=== PATIENT | female | born 1950 | race Caucasian/White ===

== ENCOUNTER 2016-09-17 11:43 | Emergency (ER) | payer OTHER ==
--- NOTE | 2016-09-17 13:28 | ED ---
Female Urogenital HPI - General Chief complaint: Urogenital Stated complaint: UTI possibly Time Seen by Provider: 09/17/16 13:14 Source: patient, RN notes reviewed Mode of arrival: ambulatory Limitations: no limitations - History of Present Illness Initial comments: This is a 66-year-old female presenting to the emergency department with 2 days of increased urinary frequency and dysuria. Patient reports that she has no abdominal pain, back pain nausea or vomiting. She reports that concerned she has a urinary tract infection. She denies any vaginal discharge. 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 She states that she thinks that it may have dropped again. She does not have insurance to see a transmission builder at this time. Patient reports that it is painful on the ending of her urination. She reports that she did take some [id number] urinary relief pills and it did have some help. - Related Data Previous Rx's Medication Instructions Recorded Nitrofurantoin Monohyd/M-Cryst 100 mg PO Q12HR #14 cap 09/17/16 [Macrobid] Phenazopyridine [Pyridium] 100 mg PO TID #9 tablet 09/17/16 Allergies Allergy/AdvReac Type Severity Reaction Status Date / Time codeine Allergy Unknown Verified 09/17/16 12:04 Review of Systems ROS Statement: Those systems with pertinent positive or pertinent negative responses have been documented in the HPI. ROS Other: All systems not noted in ROS Statement are negative. Past Medical History Additional Past Medical History / Comment(s): kidney stones, ovarian cysts History of Any Multi-Drug Resistant Organisms: None Reported Past Surgical History: Hysterectomy, Orthopedic Surgery Additional Past Surgical History / Comment(s): bladder suspension Past Psychological History: No Psychological Hx Reported Smoking Status: Former smoker Past Alcohol Use History: None Reported Past Drug Use History: None Reported General Exam - General Exam Comments Initial Comments: This is a pleasant 66-year-old female. No acute distress. Limitations: no limitations General appearance: alert, in no apparent distress Head exam: Present: atraumatic, normocephalic, normal inspection Eye exam: Present: normal appearance, PERRL, EOMI. Absent: scleral icterus, conjunctival injection, periorbital swelling ENT exam: Present: normal exam, mucous membranes moist Neck exam: Present: normal inspection. Absent: tenderness, meningismus, lymphadenopathy Respiratory exam: Present: normal lung sounds bilaterally. Absent: respiratory distress, wheezes, rales, rhonchi, stridor Cardiovascular Exam: Present: regular rate GI/Abdominal exam: Present: soft, normal bowel sounds. Absent: distended, tenderness, guarding, rebound, rigid Extremities exam: Present: normal inspection, full ROM, normal capillary refill. Absent: tenderness, pedal edema, joint swelling, calf tenderness Back exam: Present: normal inspection Neurological exam: Present: alert, oriented X3, CN II-XII intact Psychiatric exam: Present: normal affect, normal mood Skin exam: Present: warm, dry, intact, normal color. Absent: rash Course Vital Signs 09/17/16 09/17/16 12:01 13:27 Temperature 98.1 F 97.6 F Pulse Rate 68 69 Respiratory 20 16 Rate Blood Pressure 132/66 139/82 O2 Sat by Pulse 99 Oximetry Medical Decision Making - Medical Decision Making This is a 66-year-old female presenting to the emergency department with 2 days of increased urinary frequency and dysuria. Patient reports that she has no abdominal pain, back pain nausea or vomiting. She reports that concerned she has a urinary tract infection. She denies any vaginal discharge. 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 Urinalysis and urine culture obtained. Patient's urinalysis did show no significant signs of urinary tract infection. It does seem to be very diluted she has been drinking a lot of water. Uvula patient still complains of the urinary frequency and symptoms I will treat her with Macrobid and a short course of Pyridium. Discussed close follow-up with a primary care provider. Discussed returning here if there is any worsening signs or symptoms occur. Patient agrees to treatment plan will comply. Return parameters were discussed. - Lab Data Lab Results 09/17/16 Range/Units 13:20 Urine Color Colorless Urine Appearance Clear (Clear) Urine pH 6.0 (5.0-8.0) Urine Protein Negative (Negative) Urine Glucose (UA) Negative (Negative) Urine Ketones Negative (Negative) Urine Blood Negative (Negative) Urine Nitrite Negative (Negative) Urine Bilirubin Negative (Negative) Urine Urobilinogen <2.0 (<2.0) mg/dL Ur Leukocyte Esterase Negative (Negative) Disposition Clinical Impression: Dysuria Disposition: HOME SELF-CARE Condition: Good Instructions: Urinary Tract Infection in Women (ED) Additional Instructions: Patient is to increase her fluids. Take antibiotics as directed. Return to the emergency department if any alarming signs or symptoms occur. Prescriptions: Nitrofurantoin Monohyd/M-Cryst [Macrobid] 100 mg PO Q12HR #14 cap Phenazopyridine [Pyridium] 100 mg PO TID #9 tablet Referrals: None,Stated [Primary Care Provider] - 1-2 days Sharri Escobedo MD [STAFF PHYSICIAN] - 1-2 days Time of Disposition: 13:39
[2016-09-17 13:30] VITALS: TEMP 97.6
[2016-09-17 13:35] LABS: Appearance,Urine Clear (Clear); Bilirubin,Urine Negative (Negative); Glucose,Urine (UA) Negative (Negative); Ketones,Urine Negative (Negative); Leukocyte Esterase,Urine Negative (Negative); Nitrite,Urine Negative (Negative); Protein,Urine Negative (Negative); UA Billing (MACRO vs. MICRO) CHEM; Urobilinogen,Urine <2.0 mg/dL (<2.0)
[2016-09-17] MEDS ORDERED: NITROFURANTOIN MONOHYD/M-CRYST 100 MG CAP PO STA (13:41)
--- NOTE | 2016-09-17 13:48 | ED ---
Medical Decision Making - Medical Decision Making Patient is concerned that when she takes antibiotics she may develop these infection. Patient is requesting to be written for fluconazole for after her antibiotic. - Lab Data Lab Results 09/17/16 Range/Units 13:20 Urine Color Colorless Urine Appearance Clear (Clear) Urine pH 6.0 (5.0-8.0) Urine Protein Negative (Negative) Urine Glucose (UA) Negative (Negative) Urine Ketones Negative (Negative) Urine Blood Negative (Negative) Urine Nitrite Negative (Negative) Urine Bilirubin Negative (Negative) Urine Urobilinogen <2.0 (<2.0) mg/dL Ur Leukocyte Esterase Negative (Negative) Disposition Clinical Impression: Dysuria Disposition: HOME SELF-CARE Condition: Good Instructions: Urinary Tract Infection in Women (ED) Additional Instructions: Patient is to increase her fluids. Take antibiotics as directed. Return to the emergency department if any alarming signs or symptoms occur. Prescriptions: Fluconazole [Diflucan] 150 mg PO ONCE #2 tab Nitrofurantoin Monohyd/M-Cryst [Macrobid] 100 mg PO Q12HR #14 cap Phenazopyridine [Pyridium] 100 mg PO TID #9 tablet Referrals: Sharri Escobedo MD [STAFF PHYSICIAN] - 1-2 days None,Stated [Primary Care Provider] - 1-2 days Time of Disposition: 13:48
[2016-09-17 14:11] VITALS: BP 139/82; PULSE 69; RESP 16
== END 2016-09-17 14:00 | disposition home or self-care (01) ==
LOC: EC 11:43
DX: R30.0 Dysuria (principal); R35.0 Frequency of micturition; Z87.891 Personal history of nicotine dependence; Z90.710 Acquired absence of both cervix and uterus; Z98.890 Other specified postprocedural states; Z87.442 Personal history of urinary calculi; Z88.5 Allergy status to narcotic agent
CPT/HCPCS: 81003; 87086; 99283

== ENCOUNTER → 2017-05-21 | Outpatient (CLI) | payer MEDICARE ==
--- NOTE | 2017-05-25 10:27 | MM ---
Reason for exam: screening (asymptomatic). History: Patient is postmenopausal. Benign excisional biopsy of the left breast. Physical Findings: A clinical breast exam by your physician is recommended on an annual basis and results should be correlated with mammographic findings. MG 3D Screening Mammo W/Cad Bilateral CC and MLO view(s) were taken. No prior studies available for comparison. The breast tissue is extremely dense which could obscure a lesion on mammography. Stable benign calcifications. There is no discrete abnormality. No significant changes when compared with prior studies. ASSESSMENT: Benign, BI-RAD 2 RECOMMENDATION: Routine screening mammogram of both breasts in 1 year.
== END | disposition home or self-care (01) ==
LOC: RADMAMWWP 14:17
PROVIDERS: ATTEND Family Medicine
DX: Z12.31 Encounter for screening mammogram for malignant neoplasm of breast (principal)
CPT/HCPCS: 77063; 77067

== ENCOUNTER 2017-05-28 09:06 | Day surgery (SDC) | payer MEDICARE ==
[2017-05-26 15:47] VITALS: BMI 23.3
[~2017-05-28 09:06] MED LIST: LACTATED RINGERS 1,000 ML IV SCH
[2017-05-28 09:51] LABS: Glucose,Whole Blood 96 mg/dL (75-99)
[2017-05-28] MEDS ORDERED: LIDOCAINE 1% 20 ML VIAL (10MG/ML) FOR IV START INTRADERMA ONE (09:52)
[2017-05-28 09:53] VITALS: TEMP 98
[2017-05-28] MEDS ORDERED: PROPOFOL 10 MG/ML 20 ML VIAL IV ONE (10:07)
[2017-05-28] MEDS ORDERED: LIDOCAINE 1% INJ 10MG/ML (20 ML MDV) ONE (10:07)
--- NOTE | 2017-05-28 10:26 | P.GSHP ---
History of Present Illness H&P Date: 05/28/17 Chief Complaint: Screening colonoscopy Cyst 67-year-old female with Dr. Haydee higuera. Patient rents today for screening colonoscopy. She denies a significant GI complaints. Past Medical History Additional Past Medical History / Comment(s): kidney stones, ovarian cysts,low blood sugar History of Any Multi-Drug Resistant Organisms: None Reported Past Surgical History: Bladder Surgery, Hysterectomy, Orthopedic Surgery Additional Past Surgical History / Comment(s): bladder suspension Past Anesthesia/Blood Transfusion Reactions: No Reported Reaction Smoking Status: Former smoker - Past Family History Father Family Medical History: Diabetes Mellitus Medications and Allergies Home Medications Medication Instructions Recorded Confirmed Type No Known Home Medications [No 05/26/17 05/28/17 History Known Home Medications] Allergies Allergy/AdvReac Type Severity Reaction Status Date / Time codeine Allergy Confusion Verified 05/28/17 09:40 Surgical - Exam Vital Signs Temp Pulse Resp BP Pulse Ox 98.0 F 72 16 128/68 98 05/28/17 09:52 05/28/17 09:52 05/28/17 09:52 05/28/17 09:52 05/28/17 09:52 - General well developed, no distress - Eyes PERRL - ENT normal pinna - Neck no masses - Respiratory normal expansion - Cardiovascular Rhythm: regular - Abdomen Abdomen: soft, non tender Assessment and Plan Assessment: We will perform screening colonoscopy
--- NOTE | 2017-05-28 10:43 | P.OP ---
Date of Procedure: 05/28/17 Preoperative Diagnosis: Screening colonoscopy Postoperative Diagnosis: Severe diverticulosis of sigmoid left colon. Right colon not visualized Procedure(s) Performed: Colonoscopy Anesthesia: MAC Surgeon: Kenji Guzman Pathology: none sent Condition: stable Disposition: PACU Description of Procedure: The patient's placed on the endoscopy table in the lateral position. He received IV sedation. Digital rectal exam was performed which revealed no abnormalities. Flexible colonoscope was then placed patient anus and passed throughout the colon. The scope could not be passed beyond the hepatic flexure secondary to tortuosity valve. Several times made to maneuver the colonoscope however this and possible. Next scope was withdrawn. The transverse colon was a few scattered diverticula. In the descending and sigmoid colon there is extensive diverticular changes of the colon. The colon was quite floppy and redundant. Scope summer back the rectum this appeared normal. Scope was withdrawn for patient. Patient was scheduled for a barium enema.
[2017-05-28 10:53] VITALS: RESP 18
[2017-05-28 11:21] VITALS: BP 118/63; PULSE 60
--- NOTE | 2017-05-28 14:07 | FL ---
EXAMINATION TYPE: FL barium enema DATE OF EXAM: 05/28/2017 COMPARISON: NONE HISTORY: Incomplete colonoscopy TECHNIQUE: A single contrast barium enema study is performed. Excessive air was present and a double contrast study could not be performed at this time. FINDINGS: Production Pattern Maker view of the abdomen shows overall non-obstructive bowel gas pattern. Contrast is refluxed through the colon to the cecum. There is within the cecum. There are couple of scattered diverticuli present. No suspicious changes of acute diverticulitis are evident. No suspicious persistent filling defects are evident. There is a normal post void residual. 2 minutes of fluoroscopy time was provided for the procedure. 22 images were obtained. IMPRESSION: 1. Diverticulosis without acute diverticulitis.
== END 2017-05-28 12:10 | disposition home or self-care (01) ==
LOC: ORWHC2ENDO 09:06
PROVIDERS: ATTEND Surgery
DX: Z12.11 Encounter for screening for malignant neoplasm of colon (principal); K57.30 Diverticulosis of large intestine without perforation or abscess without bleeding; Q43.8 Other specified congenital malformations of intestine; Z87.891 Personal history of nicotine dependence; Z87.442 Personal history of urinary calculi; Z88.5 Allergy status to narcotic agent
CPT/HCPCS: 74270; J2001; J2704; G0121

== ENCOUNTER 2017-07-06 07:38 | Emergency (ER) | payer MEDICARE, OTHER ==
[2017-07-06 07:50] VITALS: BP 125/63; PULSE 62; RESP 18; TEMP 97.7
[2017-07-06] MEDS ORDERED: PROPARACAINE 0.5% OPHTH DROPS 15 ML BTL RIGHT EYE STA (08:11)
--- NOTE | 2017-07-06 08:13 | ED ---
Eye Problem HPI - General Chief complaint: Eye Problems Stated complaint: Eye pain Time Seen by Provider: 07/06/17 08:08 Source: patient, RN notes reviewed Mode of arrival: ambulatory Limitations: no limitations - History of Present Illness Initial comments: 67-year-old female presents from chief complaint of right eye irritation. Patient states that she was mowing the grass yesterday states that stuff blew up into her face ever since that she's felt like something was in her right eye. She states it just feels irritated there is no severe pain no pain with ocular movements denies any photosensitivity, blurred vision or double vision. She states her eyes normally drain some at nighttime and has not worsened usual. Patient does wear glasses. Patient states her tetanus is up-to-date. - Related Data Home Medications Medication Instructions Recorded Confirmed No Known Home Medications [No 05/26/17 07/06/17 Known Home Medications] Allergies Allergy/AdvReac Type Severity Reaction Status Date / Time codeine AdvReac Confusion Verified 07/06/17 08:08 Review of Systems ROS Statement: Those systems with pertinent positive or pertinent negative responses have been documented in the HPI. ROS Other: All systems not noted in ROS Statement are negative. Past Medical History Past Medical History: No Reported History Additional Past Medical History / Comment(s): kidney stones, ovarian cysts History of Any Multi-Drug Resistant Organisms: None Reported Past Surgical History: Hysterectomy, Orthopedic Surgery Additional Past Surgical History / Comment(s): bladder suspension Past Psychological History: No Psychological Hx Reported Smoking Status: Former smoker Past Alcohol Use History: Rare Past Drug Use History: None Reported General Exam Limitations: no limitations General appearance: alert, in no apparent distress Head exam: Present: atraumatic, normocephalic, normal inspection Eye exam: Present: normal appearance, PERRL, EOMI, other (Fluorescein dye and Wood's lamp were used to evaluate the right eye there is a small abrasion in the 6 o'clock position of the sclera, no foreign bodies noted). Absent: scleral icterus, conjunctival injection, periorbital swelling ENT exam: Present: normal exam, normal oropharynx, mucous membranes moist, TM's normal bilaterally, normal external ear exam Neck exam: Present: normal inspection, full ROM. Absent: tenderness, meningismus, lymphadenopathy Respiratory exam: Present: normal lung sounds bilaterally. Absent: respiratory distress, wheezes, rales, rhonchi, stridor Cardiovascular Exam: Present: regular rate, normal rhythm, normal heart sounds. Absent: systolic murmur, diastolic murmur, rubs, gallop, clicks Neurological exam: Present: alert, oriented X3, CN II-XII intact Skin exam: Present: warm, dry, intact, normal color. Absent: rash Course Vital Signs 07/06/17 07:47 Temperature 97.7 F Pulse Rate 62 Respiratory 18 Rate Blood Pressure 125/63 O2 Sat by Pulse 99 Oximetry Medical Decision Making - Medical Decision Making 67-year-old female presenting with department for right eye irritation. She has an abrasion of the sclera of the eye. Patient be given Tobrex eye drops and his ears are eyedrops for ALLERGIC symptoms. She'll follow up with on-call neurologist no improvement in 48 hours and return for any worsening symptoms. Disposition Clinical Impression: Abrasion of sclera of right eye, Allergic conjunctivitis, right eye Disposition: HOME SELF-CARE Condition: Stable Instructions: Corneal Abrasion (ED) Additional Instructions: Please return to the Emergency Department if symptoms worsen or any other concerns. Use Tobrex eyedrops 1 drop every 4 hours while awake for 5 days use Zaditor eyedrops 1 drop twice daily Is patient prescribed a controlled substance at d/c from ED?: No Referrals: Haydee Charlton DO [Primary Care Provider] - 1-2 days Oswaldo Smith MD [STAFF PHYSICIAN] - 1-2 days Time of Disposition: 08:23
[2017-07-06] MEDS ORDERED: TOBRAMYCIN 0.3% OPHTH DROPS 5 ML BTL RIGHT EYE STA (08:20)
[2017-07-06] MEDS ORDERED: KETOTIFEN 0.025% OPHTH DROPS 5 ML BTL RIGHT EYE STA (08:20)
== END 2017-07-06 08:47 | disposition home or self-care (01) ==
LOC: EC 07:38
DX: S00.211A Abrasion of right eyelid and periocular area, initial encounter (principal); H10.11 Acute atopic conjunctivitis, right eye; Z87.891 Personal history of nicotine dependence; Z88.5 Allergy status to narcotic agent; X58.XXXA Exposure to other specified factors, initial encounter; Y93.H2 Activity, gardening and landscaping
CPT/HCPCS: 99283

== ENCOUNTER 2017-08-14 06:44 | Emergency (ER) | payer MEDICARE, OTHER ==
[2017-08-14 06:50] VITALS: RESP 18
[2017-08-14] MEDS ORDERED: SODIUM CHLORIDE 0.9% 500 ML IV STA (07:35)
[2017-08-14 08:13] LABS: Basophils % (A) 1 %; Eosinophils # (A) 0.1 k/uL (0-0.7); Eosinophils % (A) 1 %; HCT 39.2 % (34.0-46.0); HGB 13.9 gm/dL (11.4-16.0); Lymphocytes # (A) 1.2 k/uL (1.0-4.8); Lymphocytes % (A) 23 %; MCH 30.2 pg (25.0-35.0); MCHC 35.4 g/dL (31.0-37.0); MCV 85.5 fL (80.0-100.0); Mean Platelet Volume 6.5; Monocytes # (A) 0.3 k/uL (0-1.0); Monocytes % (A) 5 %; Neutrophils # (A) 3.6 k/uL (1.3-7.7); Neutrophils % (A) 69 %; Platelet Count 257 k/uL (150-450); RBC 4.59 m/uL (3.80-5.40); RDW 13.3 % (11.5-15.5); WBC 5.2 k/uL (3.8-10.6)
[2017-08-14 08:18] LABS: Appearance,Urine Clear (Clear); Bilirubin,Urine Negative (Negative); Blood,Urine Small (Negative); Color,Urine Yellow; Glucose,Urine (UA) Negative (Negative); Ketones,Urine Negative (Negative); Leukocyte Esterase,Urine Negative (Negative); Mucus,Urine Few /hpf; Nitrite,Urine Negative (Negative); PH, Urine 5.5 (5.0-8.0); Protein,Urine Negative (Negative); RBC,Urine <1 /hpf (0-5); Specific Gravity,Urine 1.019 (1.001-1.035); Squamous Epithelial Cell,Urine <1 /hpf (0-4); Urobilinogen,Urine <2.0 mg/dL (<2.0); WBC,Urine 1 /hpf (0-5)
[2017-08-14 08:23] LABS: ALT 30 U/L (9-52); AST 19 U/L (14-36); Albumin 3.8 g/dL (3.5-5.0); Alkaline Phosphatase 96 U/L (38-126); Amylase <30 U/L (30-110); Anion Gap 12 mmol/L; Blood Urea Nitrogen 12 mg/dL (7-17); Calcium 9.5 mg/dL (8.4-10.2); Carbon Dioxide 24 mmol/L (22-30); Chloride 106 mmol/L (98-107); Glucose 108 mg/dL (74-99); Lipase 59 U/L (23-300); Sodium 142 mmol/L (137-145); Total Bilirubin 0.6 mg/dL (0.2-1.3); Total Protein 6.1 g/dL (6.3-8.2)
--- NOTE | 2017-08-14 08:52 | XR ---
Abdomen HISTORY: Pain Frontal view of the abdomen on 2 images correlated to previous exam 05/28/2017 Contrast likely present within sigmoid diverticula noted within the pelvis. Lung bases are clear. No pneumoperitoneum or bowel obstruction evident. Mild spinal curvature noted. Air-fluid levels noted wi thout bowel distention. IMPRESSION: Correlate for possible ileus or enteritis, follow-up as indicated.
--- NOTE | 2017-08-14 09:38 | ED ---
General Adult HPI - General Chief complaint: Abdominal Pain Stated complaint: Pelvic Pain Time Seen by Provider: 08/14/17 07:00 Source: patient, RN notes reviewed Mode of arrival: ambulatory Limitations: no limitations - History of Present Illness Initial comments: This is a 67-year-old female who presents emergency Department complaining of some lower abdominal pain. Patient states on Wednesday she started having severe lower abdominal cramping and had diarrhea for 2 days on all the severe pain went away but she continues to have aching in her lower abdomen both right and left and suprapubic. Patient states is no fevers is noted diarrhea there's no nausea or vomiting but the pain persists and she actually describes it more of a soreness is if she had done a bunch of sit-ups. Patient denies any chest pain difficulty breathing or shortness of breath. Patient denies any other symptoms at this time. - Related Data Home Medications Medication Instructions Recorded Confirmed No Known Home Medications 05/26/17 07/06/17 Allergies Allergy/AdvReac Type Severity Reaction Status Date / Time codeine AdvReac Confusion Verified 08/14/17 06:50 Review of Systems ROS Statement: Those systems with pertinent positive or pertinent negative responses have been documented in the HPI. ROS Other: All systems not noted in ROS Statement are negative. Past Medical History Past Medical History: No Reported History Additional Past Medical History / Comment(s): kidney stones, ovarian cysts History of Any Multi-Drug Resistant Organisms: None Reported Past Surgical History: Hysterectomy, Orthopedic Surgery Additional Past Surgical History / Comment(s): bladder suspension Past Psychological History: No Psychological Hx Reported Smoking Status: Former smoker Past Alcohol Use History: Rare Past Drug Use History: None Reported General Exam - General Exam Comments Initial Comments: GENERAL: Patient is well-developed and well-nourished. Patient is nontoxic and well- hydrated and is in mild distress. ENT: Neck is soft and supple. No significant lymphadenopathy is noted. Oropharynx is clear. Moist mucous membranes. Neck has full range of motion without eliciting any pain. EYES: The sclera were anicteric and conjunctiva were pink and moist. Extraocular movements were intact and pupils were equal round and reactive to light. Eyelids were unremarkable. PULMONARY: Unlabored respirations. Good breath sounds bilaterally. No audible rales rhonchi or wheezing was noted. CARDIOVASCULAR: There is a regular rate and rhythm without any murmurs gallops or rubs. ABDOMEN: Minimal left and right quadrant tenderness as well as some suprapubic tenderness no rebound or guarding. No palpable organomegaly was noted. There is no palpable pulsatile mass. SKIN: Skin is clear with no lesions or rashes and otherwise unremarkable. NEUROLOGIC: Patient is alert and oriented x3. Cranial nerves II through XII are grossly intact. Motor and sensory are also intact. Normal speech, volume and content. Symmetrical smile. MUSCULOSKELETAL: Normal extremities with adequate strength and full range of motion. No lower extremity swelling or edema. No calf tenderness. LYMPHATICS: No significant lymphadenopathy is noted PSYCHIATRIC: Normal psychiatric evaluation. Normal interpersonal interactions appears functionally intact in deals appropriately with others. No signs of depression. No signs of anxiety. Limitations: no limitations Course Vital Signs 08/14/17 06:47 Temperature 98.0 F Pulse Rate 73 Respiratory 18 Rate Blood Pressure 139/75 O2 Sat by Pulse 99 Oximetry Medical Decision Making - Medical Decision Making KUB showed no acute abnormality. I will back in and told the patient about her results she did indicate to me that every day her pain was getting slightly better day by day. Patient agreed she follow-up with her primary medical care doctor or return if any symptoms were worse or any new symptoms occur. - Lab Data Result diagrams: 08/14/17 07:55 08/14/17 07:55 Lab Results 08/14/17 08/14/17 08/14/17 Range/Units 06:35 07:55 07:55 WBC 5.2 (3.8-10.6) k/uL RBC 4.59 (3.80-5.40) m/uL Hgb 13.9 (11.4-16.0) gm/dL Hct 39.2 (34.0-46.0) % MCV 85.5 (80.0-100.0) fL MCH 30.2 (25.0-35.0) pg MCHC 35.4 (31.0-37.0) g/dL RDW 13.3 (11.5-15.5) % Plt Count 257 (150-450) k/uL Neutrophils % 69 % Lymphocytes % 23 % Monocytes % 5 % Eosinophils % 1 % Basophils % 1 % Neutrophils # 3.6 (1.3-7.7) k/uL Lymphocytes # 1.2 (1.0-4.8) k/uL Monocytes # 0.3 (0-1.0) k/uL Eosinophils # 0.1 (0-0.7) k/uL Basophils # 0.0 (0-0.2) k/uL Sodium 142 (137-145) mmol/L Potassium 4.0 (3.5-5.1) mmol/L Chloride 106 (98-107) mmol/L Carbon Dioxide 24 (22-30) mmol/L Anion Gap 12 mmol/L BUN 12 (7-17) mg/dL Creatinine 0.58 (0.52-1.04) mg/dL Est GFR (CKD-EPI)AfAm >90 (>60 ml/min/1.73 sqM) Est GFR (CKD-EPI)NonAf >90 (>60 ml/min/1.73 sqM) Glucose 108 H (74-99) mg/dL Calcium 9.5 (8.4-10.2) mg/dL Total Bilirubin 0.6 (0.2-1.3) mg/dL AST 19 (14-36) U/L ALT 30 (9-52) U/L Alkaline Phosphatase 96 (38-126) U/L Total Protein 6.1 L (6.3-8.2) g/dL Albumin 3.8 (3.5-5.0) g/dL Amylase <30 L (30-110) U/L Lipase 59 (23-300) U/L Urine Color Yellow Urine Appearance Clear (Clear) Urine pH 5.5 (5.0-8.0) Ur Specific [place] 1.019 (1.001-1.035) Urine Protein Negative (Negative) Urine Glucose (UA) Negative (Negative) Urine Ketones Negative (Negative) Urine Blood Small H (Negative) Urine Nitrite Negative (Negative) Urine Bilirubin Negative (Negative) Urine Urobilinogen <2.0 (<2.0) mg/dL Ur Leukocyte Esterase Negative (Negative) Urine RBC <1 (0-5) /hpf Urine WBC 1 (0-5) /hpf Ur Squamous Epith Cells <1 (0-4) /hpf Urine Mucus Few H (None) /hpf Disposition Clinical Impression: Abdominal pain Disposition: HOME SELF-CARE Instructions: Abdominal Pain (ED) Is patient prescribed a controlled substance at d/c from ED?: No Referrals: Haydee Charlton, [Primary Care Provider] - 1-2 days Time of Disposition: 09:45
[2017-08-14 09:57] VITALS: BP 127/64; PULSE 60; TEMP 97.4
== END 2017-08-14 09:56 | disposition home or self-care (01) ==
LOC: EC 06:44
DX: R10.31 Right lower quadrant pain (principal); R10.32 Left lower quadrant pain; R10.2 Pelvic and perineal pain; Z87.442 Personal history of urinary calculi; Z90.710 Acquired absence of both cervix and uterus; Z87.891 Personal history of nicotine dependence; Z88.5 Allergy status to narcotic agent
CPT/HCPCS: 36415; 74018; 80053; 81001; 82150; 83690; 85025; 96360; 96361; 99284

== ENCOUNTER → 2018-11-14 | Outpatient (CLI) | payer MEDICARE, OTHER ==
--- NOTE | 2018-11-15 09:20 | MM ---
Reason for exam: screening (asymptomatic). Last mammogram was performed 1 year and 6 months ago. History: Patient is postmenopausal. Benign excisional biopsy of the left breast. Physical Findings: A clinical breast exam by your physician is recommended on an annual basis and results should be correlated with mammographic findings. MG 3D Screening Mammo W/Cad Bilateral CC and MLO view(s) were taken. Prior study comparison: May 21, 2017, bilateral MG 3d screening mammo w/cad. The breast tissue is heterogeneously dense. This may lower the sensitivity of mammography. Stable benign calcifications. There is no discrete abnormality. No significant changes when compared with prior studies. ASSESSMENT: Benign, BI-RAD 2 RECOMMENDATION: Routine screening mammogram of both breasts in 1 year.
== END | disposition home or self-care (01) ==
LOC: RADMAMWWP 07:24
PROVIDERS: ATTEND Family Medicine
DX: Z12.31 Encounter for screening mammogram for malignant neoplasm of breast (principal)
CPT/HCPCS: 77063; 77067

== ENCOUNTER 2019-10-16 13:36 | Emergency (ER) | payer MEDICARE, OTHER ==
--- NOTE | 2019-10-16 14:02 | ED ---
Lower Extremity Injury HPI - General Chief Complaint: Extremity Injury, Lower Stated Complaint: L Foot Pain Time Seen by Provider: 10/16/19 14:01 Source: patient Mode of arrival: wheelchair Limitations: physical limitation - History of Present Illness Initial Comments: Patient is a 65-year-old female presenting to the emergency department with a chief complaint of left foot pain. Patient states she woke up from bed about 2 days ago and got off on her left foot. Patient reports she felt a "pop" that was followed pain. Patient reports throughout the whole day she continued to have pain with weightbearing. Patient reports the pain is alleviated at rest. Patient reports the pain does radiate somewhat posteriorly to the heel. Patient does report occasional tingling sensation on the plantar aspect of the foot but this is intermittent in nature. She denies any ecchymosis but does report some mild swelling. Denies taking any medication to alleviate the symptoms. - Related Data Home Medications Medication Instructions Recorded Confirmed No Known Home Medications 05/26/17 07/06/17 Allergies Allergy/AdvReac Type Severity Reaction Status Date / Time codeine AdvReac Confusion Verified 10/16/19 13:50 Review of Systems ROS Statement: Those systems with pertinent positive or pertinent negative responses have been documented in the HPI. ROS Other: All systems not noted in ROS Statement are negative. Past Medical History Past Medical History: No Reported History Additional Past Medical History / Comment(s): kidney stones, ovarian cysts History of Any Multi-Drug Resistant Organisms: None Reported Past Surgical History: Hysterectomy, Orthopedic Surgery Additional Past Surgical History / Comment(s): bladder suspension Past Psychological History: No Psychological Hx Reported Smoking Status: Former smoker Past Alcohol Use History: Rare Past Drug Use History: None Reported General Exam Limitations: physical limitation General appearance: alert, in no apparent distress Head exam: Present: atraumatic, normocephalic, normal inspection Eye exam: Present: normal appearance, PERRL, EOMI Pupils: Present: normal accommodation ENT exam: Present: normal exam, normal oropharynx, mucous membranes moist, TM's normal bilaterally, normal external ear exam Neck exam: Present: normal inspection, full ROM Respiratory exam: Present: normal lung sounds bilaterally. Absent: respiratory distress, wheezes, rales Cardiovascular Exam: Present: regular rate, normal rhythm, normal heart sounds Extremities exam: Present: normal inspection, full ROM (Full range of motion with plantar and dorsiflexion on the left foot.), tenderness (Midfoot tenderness along the plantar aspect with slight radiation to the heel. No malleoli tenderness.), normal capillary refill, other (+2 dorsalis pedis and posterior tibial bilateral.). Absent: pedal edema, joint swelling, calf tenderness Back exam: Present: normal inspection, full ROM. Absent: tenderness, CVA tenderness (R), CVA tenderness (L) Neurological exam: Present: alert, oriented X3 Psychiatric exam: Present: normal affect, normal mood Skin exam: Present: warm, dry, intact, normal color Course Vital Signs 10/16/19 13:46 Temperature 98.2 F Pulse Rate 72 Respiratory 18 Rate Blood Pressure 142/83 O2 Sat by Pulse 97 Oximetry Medical Decision Making - Medical Decision Making Patient is a 69-year-old female presenting to the emergency department with a chief complaint of left foot pain. Examination has some midfoot tenderness or deep plantar aspect of the foot. Low suspicion for plantar fasciitis at this time. Do suspect a foot sprain. She is neurovascularly intact. X-ray reveals no acute findings but the radiologist does recommend MRI. Patient advised to alternate between Tylenol and Motrin for pain control. She was advised to follow-up with occupational medicine specialist. Strict return from his were thoroughly discussed the patient was understanding and agreeable. Case discussed with physician. Disposition Clinical Impression: Left foot pain, Sprain of left foot Disposition: HOME SELF-CARE Condition: Stable Instructions (If sedation given, give patient instructions): Foot Sprain (ED) Additional Instructions: Follow with occupational medicine specialist. Return to emergency department if symptoms worsen. Alternate between Tylenol and Motrin for pain control. Is patient prescribed a controlled substance at d/c from ED?: No Referrals: Haydee Charlton DO [Primary Care Provider] - 1-2 days Daniel Mancera DO [Doctor of Osteopathic Medicine] - 1-2 days Time of Disposition: 14:53
--- NOTE | 2019-10-16 14:33 | XR ---
Left foot HISTORY: Pain 3 views the left foot Bone mineralization, joint spaces and alignment are maintained. There is a small plantar calcaneal sp ur. IMPRESSION: No fracture or dislocation. Bone scan or MRI may be of increased sensitivity.
[2019-10-16 15:38] VITALS: BP 146/80; PULSE 71; RESP 16; TEMP 98.1
== END 2019-10-16 15:38 | disposition home or self-care (01) ==
LOC: EC 13:36
DX: S93.602A Unspecified sprain of left foot, initial encounter (principal); M79.89 Other specified soft tissue disorders; Z88.5 Allergy status to narcotic agent; Z98.890 Other specified postprocedural states; Z87.891 Personal history of nicotine dependence; X58.XXXA Exposure to other specified factors, initial encounter
CPT/HCPCS: 99283

== ENCOUNTER → 2021-01-29 | Outpatient (CLI) | payer MEDICARE ==
--- NOTE | 2021-01-29 11:40 | NM ---
EXAMINATION TYPE: NM stress cardiolite complete DATE OF EXAM: 01/29/2021 COMPARISON: NONE HISTORY: R07.89 atypical chest pain TECHNIQUE: After the intravenous administration of 9.1 mCi Tc 99m Sestamibi - Rest images obtained 7 5 minutes post injection. The patient exercised using a ZACHARY protocol and 1 minute prior to peak e xercise was injected with 25.1 mCi Tc 99m Sestamibi - Stress images obtained 30 minutes post injectio n. FINDINGS: Targeted heart rate was achieved during performance of the study. Review of stress and rest SPECT ivis ges demonstrates mild decreased uptake along the anteroseptal left ventricle on stress as compared to rest images. Gated analysis shows normal wall motion with an estimated left ventricular ejection fr action of 58 %. Gut activity is present. IMPRESSION: Findings consistent with stress-induced left ventricular myocardial ischemia as described A Yellow level critical message alert has been initiated for Haydee Charlton DO via the [facility] Results System on 01/29/2021 11:38 AM. This message alert has been sent to [facility] via the preferences provided by the clinician for the receipt of Radiology Critical Findings. [email or web address] ID [id number].
--- NOTE | 2021-01-29 13:50 | EST ---
EXERCISE STRESS AGE: 70 SEX: F HT: 5'7" WT: 160 lbs. PROTOCOL: Cardiolite Cristian STAGE: 1 DURATION OF EXERCISE: 3;30 HEART RATE REST: 71 BLOOD PRESSURE REST: 155/88 MAXIMUM HEART RATE ACHIEVED: 143 MAXIMUM BLOOD PRESSURE: 203/98 85% MPHR: 129 100% MPHR: 152 METS: 4.7 INDICATIONS: Chest pain. CLINICAL INFORMATION: Baseline EKG shows sinus rhythm, normal axis, normal intervals. Patient exercised on Cristian protocol for a total of 3-1/2 minutes, achieving by METS, 94% of predicted maximal heart rate, without chest pain. She became very short of breath, had frequent ventricular ectopy, and developed a [address]-segment depression in the inferolateral leads. This persisted for 4 minutes into recovery. CONCLUSIONS: 1. Poor exercise tolerance. 2. Severely abnormal EKG part of the stress test. 3. Ventricular ectopy. 4. Cardiolite portion of the stress test will be reported separately. MMODL / IJN: [id number] /
== END | disposition home or self-care (01) ==
LOC: RADNMMAIN 07:33
PROVIDERS: ATTEND Family Medicine
DX: R94.31 Abnormal electrocardiogram [ECG] [EKG] (principal); I49.3 Ventricular premature depolarization
CPT/HCPCS: 93017; 78452; A9500

== ENCOUNTER → 2021-02-11 | Outpatient (CLI) | payer MEDICARE ==
[2021-02-11 10:26] LABS: HGB 14.7 gm/dL (11.4-16.0); MCH 30.1 pg (25.0-35.0); MCHC 32.7 g/dL (31.0-37.0); MCV 91.8 fL (80.0-100.0); Platelet Count 282 k/uL (150-450); RDW 13.1 % (11.5-15.5); WBC 9.1 k/uL (3.8-10.6)
[2021-02-11 10:35] LABS: African American GFR (CKD) >90 (>60 ml/min/1.73 sqM); Anion Gap 8 mmol/L; Blood Urea Nitrogen 15 mg/dL (7-17); Carbon Dioxide 26 mmol/L (22-30); Chloride 105 mmol/L (98-107); Non-African American GFR(CKD) >90 (>60 ml/min/1.73 sqM); Potassium 4.6 mmol/L (3.5-5.1); Sodium 139 mmol/L (137-145)
== END | disposition home or self-care (01) ==
LOC: LABPAT 09:30
PROVIDERS: ATTEND Internal Medicine
DX: Z01.812 Encounter for preprocedural laboratory examination (principal); R94.31 Abnormal electrocardiogram [ECG] [EKG]
CPT/HCPCS: 36415; 80051; 82565; 84520; 85027

== ENCOUNTER → 2021-03-10 | Outpatient (CLI) | payer MEDICARE ==
--- NOTE | 2021-03-11 08:35 | MM ---
Reason for exam: screening (asymptomatic). Last mammogram was performed 2 years and 4 months ago. History: Patient is postmenopausal. Benign excisional biopsy of the left breast. Physical Findings: A clinical breast exam by your physician is recommended on an annual basis and results should be correlated with mammographic findings. MG 3D Screening Mammo W/Cad Bilateral CC and MLO view(s) were taken. Prior study comparison: November 14, 2018, bilateral MG 3d screening mammo w/cad. May 21, 2017, bilateral MG 3d screening mammo w/cad. The breast tissue is heterogeneously dense. This may lower the sensitivity of mammography. There is chronic nodularity in the right breast. Medial asymmetric density right CC view is more defined. Medial grouped calcifications left breast are new. Unable to clearly localize on MLO. ASSESSMENT: Incomplete: need additional imaging evaluation, BI-RAD 0 RECOMMENDATION: Special view mammogram of both breasts. (right 3D, left magnification) If lesion persists on supplemental views, image directed ultrasound is recommended. [facility] will attempt to contact patient to return for supplemental views and ultrasound if indicated.
== END | disposition home or self-care (01) ==
LOC: RADMAMWWP 07:01
PROVIDERS: ATTEND Family Medicine
DX: Z12.31 Encounter for screening mammogram for malignant neoplasm of breast (principal); Z78.0 Asymptomatic menopausal state
CPT/HCPCS: 77063; 77067

== ENCOUNTER → 2021-03-14 | Outpatient (CLI) | payer MEDICARE ==
--- NOTE | 2021-03-17 07:39 | MM ---
Reason for exam: additional evaluation requested from abnormal screening. Last mammogram was performed less than 1 month ago. History: Patient is postmenopausal. Benign excisional biopsy of the left breast. Physical Findings: Nurse did not find any significant physical abnormalities on exam. MG 3D Work Up W/Cad SCOTT Bilateral LM view(s) were taken. Spot compression CC view(s) were taken of the right breast. CC with magnification and LM with magnification view(s) were taken of the left breast. Prior study comparison: March 10, 2021, bilateral MG 3d screening mammo w/cad. November 14, 2018, bilateral MG 3d screening mammo w/cad. The breast tissue is heterogeneously dense. This may lower the sensitivity of mammography. Finding: There are four round, grouped/clustered calcifications in the inner quadrant, middle position of the left breast. There is no discrete abnormality including area of concern right and left medial breast. These results were verbally communicated with the patient and result sheet given to the patient on 03/14/21. ASSESSMENT: Probably benign, BI-RAD 3 RECOMMENDATION: Follow-up diagnostic mammogram of both breasts in 6 months.
== END | disposition home or self-care (01) ==
LOC: RADMAMWWP 14:23
PROVIDERS: ATTEND Family Medicine
DX: R92.1 Mammographic calcification found on diagnostic imaging of breast (principal); Z78.0 Asymptomatic menopausal state
CPT/HCPCS: 77066; G0279; 77062

== ENCOUNTER → 2021-08-14 | Day surgery (SDC) | payer MEDICARE ==
[2021-08-12 15:56] VITALS: BMI 25.8
[~2021-08-14] MED LIST changes: +IOPAMIDOL CONTRAST (ORAL USE) VIAL PO PRN; +LIDOCAINE 1% (10MG/ML) FOR IV START INTRADERMA PRN; +PROPOFOL 10 MG/ML 20 ML VIAL IV ONE
[2021-08-14 09:33] VITALS: TEMP 98.2
--- NOTE | 2021-08-14 10:49 | P.GSHP ---
History of Present Illness H&P Date: 08/14/21 Chief Complaint: Abdominal pain This a 69-year-old female who has complaints of abdominal pain. Patient states she has history of irritable bowel syndrome with constipation. She presents today for colonoscopy Past Medical History Past Medical History: GERD/Reflux Additional Past Medical History / Comment(s): kidney stones, ovarian cysts, hx migraines, IBS, urinary leakage, History of Any Multi-Drug Resistant Organisms: None Reported Past Surgical History: Bladder Surgery, Hysterectomy, Joint Replacement, Orthopedic Surgery Additional Past Surgical History / Comment(s): bladder suspension x 2, rt knee replacement, lt hand surgery Past Anesthesia/Blood Transfusion Reactions: No Reported Reaction Smoking Status: Former smoker - Past Family History Mother Family Medical History: No Reported History Medications and Allergies Home Medications Medication Instructions Recorded Confirmed Type Aspirin [[place] Aspirin EC] 81 mg PO DAILY 02/11/21 08/14/21 History Multivit-Min/FA/Lycopen/Lutein 1 each PO DAILY 02/11/21 08/14/21 History [Centrum Silver Tablet] PARoxetine [Paxil] 10 mg PO DAILY 02/11/21 08/14/21 History Pantoprazole [Protonix] 40 mg PO DAILY 02/11/21 08/14/21 History Pramipexole [Mirapex] 0.25 mg PO DAILY 02/11/21 08/14/21 History Ergocalciferol [Vitamin D2 (1250 1,250 mcg PO [place] 08/12/21 08/14/21 History Mcg = 71280 Iu)] Magnesium Gummies 2 tab PO HS 08/12/21 08/14/21 History Allergies Allergy/AdvReac Type Severity Reaction Status Date / Time codeine AdvReac Confusion Verified 08/12/21 15:44 Surgical - Exam Vital Signs Temp Pulse Resp BP Pulse Ox 98.2 F 70 18 145/72 98 08/14/21 09:32 08/14/21 09:32 08/14/21 09:32 08/14/21 09:32 08/14/21 09:32 - General well developed, well nourished, no distress - Eyes PERRL - ENT normal pinna - Neck no masses - Respiratory normal expansion - Cardiovascular Rhythm: regular - Abdomen Abdomen: soft, non tender Assessment and Plan Assessment: History of air bowel syndrome, abdominal pain we'll perform colonoscopy
[2021-08-14 12:06] VITALS: BP 101/98; PULSE 71; RESP 16
[2021-08-14 13:04] LABS: African American GFR (CKD) >90 (>60 ml/min/1.73 sqM); Blood Urea Nitrogen 10 mg/dL (7-17); Non-African American GFR(CKD) >90 (>60 ml/min/1.73 sqM)
--- NOTE | 2021-08-14 14:45 | CT ---
EXAMINATION TYPE: CT abdomen pelvis w con DATE OF EXAM: 08/14/2021 COMPARISON: No previous CT scan is available for comparison HISTORY: Diverticulitis. CT DLP: 806.3 mGycm Automated exposure control for dose reduction was used. TECHNIQUE: Helical acquisition of images was performed from the lung bases through the pelvis. CONTRAST: Performed with Oral Contrast and with IV Contrast, patient injected with 70ml mL of Isovue 300. FINDINGS: LUNG BASES: Suspected left atrial enlargement. LIVER/GB: Few cysts in the right hepatic dome. Grossly unremarkable gallbladder. PANCREAS: No significant abnormality is seen. SPLEEN: No significant abnormality is seen. ADRENALS: No significant abnormality is seen. KIDNEYS: Left renal cysts without suspicious feature. 2 mm nonobstructing calculus at the lower pole of the left kidney, otherwise unremarkable kidneys. FREE AIR: No free air is visualized. RETROPERITONEAL ADENOPATHY: None visualized REPRODUCTIVE ORGANS: Previous hysterectomy. Suspected left ovarian cysts measuring up to 2.7 cm, plea se correlate with pelvic ultrasound results. URINARY BLADDER: No significant abnormality is seen. PELVIC ADENOPATHY: No pathologically enlarged pelvic lymph nodes. OSSEOUS STRUCTURES: No aggressive bone lesion. BOWEL: Small sliding hiatal hernia. Duodenal diverticulum measuring 3.8 cm. Nonspecific wall thicken ing of the terminal ileum, possibly related to chronic inflammatory changes. No evidence of bowel obs truction. Nonspecific wall thickening of the rectum. Colonic diverticulosis without evidence of acute diverticulitis. Elongated redundant colon. OTHER: Arterial atherosclerotic calcifications. No ascites. IMPRESSION: Colonic diverticulosis without evidence of acute diverticulitis. Other incidental findings as describ ed above.
--- NOTE | 2021-08-22 10:22 | P.OP ---
Date of Procedure: 07/18/21 Preoperative Diagnosis: Diarrhea Constipation Irritable bowel syndrome Postoperative Diagnosis: Severe diverticulosis of sigmoid colon Procedure(s) Performed: Colonoscopy Anesthesia: MAC Surgeon: Kenji Guzman Pathology: none sent Condition: stable Disposition: PACU Description of Procedure: The patient's placed on the endoscopy table in the lateral position. She received IV sedation. Digital rectal exam was performed. This revealed no abnormality. The flexible colonoscope was then placed patient anus. The clot scope was advanced through the colon. Scope couldn't be passed beyond the splenic flexure secondary to tortuosity valve. The patient had significant diverticular disease of the colon. The colon was also redundant. Scope was withdrawn. The descending colon had diverticulosis. In the; the diverticula this was extensive. The scope summer back the rectum. There is no unsteady active diverticulitis. Scope withdrawn for patient. Patient was scheduled for a computed tomography scan to evaluate the remaining colon.
== END ==
LOC: ORWHC2ENDO 08:35
PROVIDERS: ATTEND Surgery
DX: K57.30 Diverticulosis of large intestine without perforation or abscess without bleeding (principal); K63.89 Other specified diseases of intestine; K58.2 Mixed irritable bowel syndrome; K21.9 Gastro-esophageal reflux disease without esophagitis; G43.909 Migraine, unspecified, not intractable, without status migrainosus; Z87.442 Personal history of urinary calculi; Z87.891 Personal history of nicotine dependence; Z79.82 Long term (current) use of aspirin; Z79.899 Other long term (current) drug therapy; Z88.5 Allergy status to narcotic agent; Z83.3 Family history of diabetes mellitus
CPT/HCPCS: 82565; 84520; 74177; 36415; 45330; J2704; Q9967; 45380

== ENCOUNTER → 2021-09-24 | Outpatient (CLI) | payer MEDICARE ==
--- NOTE | 2021-09-24 07:50 | MM ---
Reason for Exam: Follow-up at short interval from prior study. Last screening mammogram was performed 7 month(s) ago. Patient History: Menarche at age 15. First Full-Term at age 22. Left ovary removed at age 31. Right ovary removed at age 31. Hysterectomy at age 31. Postmenopausal. Patient used Estrogen for 2 years. Benign Excisional Biopsy on the left side. Risk Values: [place] 5 year model risk: 1.8%. NCI Lifetime model risk: 5.6%. Prior Study Comparison: 05/21/2017 Bilateral Screening Mammogram, [facility]. 11/14/2018 Bilateral Screening Mammogram, [facility]. 03/10/2021 Bilateral Screening Mammogram, [facility]. 03/14/2021 Bilateral Diagnostic Mammogram, [facility]. Tissue Density: The breast tissue is heterogeneously dense. This may lower the sensitivity of mammography. Findings: Analyzed By CAD. No suspicious persistent grouping of calcifications is evident. There are benign appearing scattered bilateral breast calcifications. No spiculated or lobular masses are evident. Overall Assessment: Benign, BI-RAD 2 Management: Screening Mammogram of both breasts in 6 months. A clinical breast exam by your physician is recommended on an annual basis and results should be correlated with mammographic findings. This exam should not preclude additional follow-up of suspicious palpable abnormalities. Results were given to the patient verbally at the time of exam. Electronically signed and approved by: Ravin Chou D.O. Radiologis
== END | disposition home or self-care (01) ==
LOC: RADMAMWWP 07:20
PROVIDERS: ATTEND Family Medicine
DX: R92.1 Mammographic calcification found on diagnostic imaging of breast (principal); Z78.0 Asymptomatic menopausal state
CPT/HCPCS: 77066; G0279; 77062

== ENCOUNTER 2022-02-05 03:03 | Emergency (ER) | payer MEDICARE ==
[2022-02-05 03:16] VITALS: TEMP 98.3
[2022-02-05 03:35] LABS: Basophils % (A) 1 %; Eosinophils # (A) 0.1 k/uL (0-0.7); Eosinophils % (A) 1 %; HCT 37.4 % (34.0-46.0); HGB 13.4 gm/dL (11.4-16.0); Lymphocytes % (A) 16 %; MCH 30.7 pg (25.0-35.0); MCHC 35.9 g/dL (31.0-37.0); MCV 85.5 fL (80.0-100.0); Mean Platelet Volume 7.5; Monocytes # (A) 0.5 k/uL (0-1.0); Monocytes % (A) 8 %; Neutrophils # (A) 4.6 k/uL (1.3-7.7); Neutrophils % (A) 71 %; Platelet Count 216 k/uL (150-450); RBC 4.38 m/uL (3.80-5.40); RDW 13.5 % (11.5-15.5); WBC 6.5 k/uL (3.8-10.6)
[2022-02-05 03:59] LABS: ALT 19 U/L (4-34); AST 23 U/L (14-36); African American GFR (CKD) >90 (>60 ml/min/1.73 sqM); Albumin 3.6 g/dL (3.5-5.0); Alkaline Phosphatase 121 U/L (38-126); Anion Gap 6 mmol/L; Blood Urea Nitrogen 11 mg/dL (7-17); Calcium 9.2 mg/dL (8.4-10.2); Carbon Dioxide 21 mmol/L (22-30); Chloride 108 mmol/L (98-107); Glucose 115 mg/dL (74-99); Magnesium 1.9 mg/dL (1.6-2.3); Non-African American GFR(CKD) >90 (>60 ml/min/1.73 sqM); Potassium 3.9 mmol/L (3.5-5.1); Sodium 135 mmol/L (137-145); Total Bilirubin 0.5 mg/dL (0.2-1.3); Total Protein 5.9 g/dL (6.3-8.2)
--- NOTE | 2022-02-05 04:38 | XR ---
EXAMINATION TYPE: XR chest 2V DATE OF EXAM: 02/05/2022 COMPARISON: NONE HISTORY: Cough. TECHNIQUE: Frontal and lateral views of the chest are obtained. FINDINGS: Elevated and eventrated anterior aspect right hemidiaphragm. There is suspected mild under lying chronic parenchymal change without suspicious focal air space opacity, pleural effusion, or pne umothorax seen. The cardiac silhouette size is upper limits of normal. The osseous structures are somewhat demineralized. IMPRESSION: No acute pulmonary process.
--- NOTE | 2022-02-05 05:26 | CT ---
EXAMINATION TYPE: CT angio chest DATE OF EXAM: 02/05/2022 COMPARISON: Chest x-ray earlier today HISTORY: elevated d-dimer CT DLP: 287.9 mGycm. Automated Exposure Control for Dose Reduction was Utilized. CONTRAST: CTA scan of the thorax is performed with IV Contrast, patient injected with 100 mL of Isovue 370, pul monary embolism protocol. MIP Images are created on CT scanner and reviewed. FINDINGS: LUNGS: Mild to moderate underlying emphysematous change is redemonstrated. No suspicious focal consol idation. No pleural effusion or pneumothorax seen bilaterally. MEDIASTINUM: There is satisfactory enhancement of the pulmonary artery and its branches, there is no CT evidence for pulmonary embolism. There are no greater than 1 cm hilar or mediastinal lymph nodes. No cardiomegaly or pericardial effusion is seen. Coronary artery calcification is present which is noted marker for underlying coronary artery disease. Somewhat small size thyroid gland there is note d. Satisfactory enhancement of the thoracic aorta without aneurysm or dissection. OTHER: There is S-shaped scoliosis. There is exaggerated thoracic kyphosis. IMPRESSION: No CT evidence for acute pulmonary embolism. Mild emphysematous change without acute pulm onary process.
--- NOTE | 2022-02-05 05:37 | ED ---
General Adult HPI - General Chief complaint: Syncope Stated complaint: Syncope Time Seen by Provider: 02/05/22 03:04 Source: EMS Mode of arrival: EMS Limitations: no limitations - History of Present Illness Initial comments: This is a 71-year-old female with no past medical history presents emergency department via EMS for presyncope. The patient did report that she awoke at night at home and had 4 episodes of feeling as if she was about to pass out but never had reported that she passed out. The patient tried to call her daughter however she did not answer so she called EMS to be evaluated in the emergency department. The patient denied any shortness of breath, difficulty in breathing as well as any nausea and vomiting. The patient did state that she felt fine currently however still had 4 episodes of feeling earlier today. The patient di d however report that a family member with a "head cold" came to help fix her furnace at her home earlier in the week and she had seen her primary care physician earlier in the day and diagnosed her with a sinus problem. The patient had started Augmentin yesterday however did not have any medications this morning. The patient was resting in bed comfortably. - Related Data Home Medications Medication Instructions Recorded Confirmed Aspirin [[place] Aspirin EC] 81 mg PO DAILY 02/11/21 08/14/21 Multivit-Min/FA/Lycopen/Lutein 1 each PO DAILY 02/11/21 08/14/21 [Centrum Silver Tablet] PARoxetine [Paxil] 10 mg PO DAILY 02/11/21 08/14/21 Pantoprazole [Protonix] 40 mg PO DAILY 02/11/21 08/14/21 Pramipexole [Mirapex] 0.25 mg PO DAILY 02/11/21 08/14/21 Ergocalciferol [Vitamin D2 (1250 1,250 mcg PO [place] 08/12/21 08/14/21 Mcg = 33765 Iu)] Magnesium Gummies 2 tab PO HS 08/12/21 08/14/21 Allergies Allergy/AdvReac Type Severity Reaction Status Date / Time codeine AdvReac Confusion Verified 02/05/22 03:11 Review of Systems ROS Statement: Those systems with pertinent positive or pertinent negative responses have been documented in the HPI. ROS Other: All systems not noted in ROS Statement are negative. Past Medical History Past Medical History: GERD/Reflux Additional Past Medical History / Comment(s): kidney stones, ovarian cysts, hx migraines, IBS, urinary leakage, History of Any Multi-Drug Resistant Organisms: None Reported Past Surgical History: Bladder Surgery, Hysterectomy, Joint Replacement, Orthopedic Surgery Additional Past Surgical History / Comment(s): bladder suspension x 2, rt knee replacement, lt hand surgery Past Anesthesia/Blood Transfusion Reactions: No Reported Reaction Past Psychological History: Anxiety, Depression Smoking Status: Former smoker - Past Family History Mother Family Medical History: No Reported History General Exam Limitations: no limitations General appearance: alert, in no apparent distress Head exam: Present: atraumatic, normocephalic Eye exam: Present: normal appearance, PERRL Pupils: Present: normal accommodation ENT exam: Present: normal exam, normal oropharynx, mucous membranes moist Neck exam: Present: normal inspection, full ROM Respiratory exam: Present: normal lung sounds bilaterally Cardiovascular Exam: Present: regular rate, normal rhythm, normal heart sounds GI/Abdominal exam: Present: soft, normal bowel sounds Extremities exam: Present: normal inspection, full ROM Back exam: Present: normal inspection, full ROM Neurological exam: Present: alert, oriented X3, CN II-XII intact Psychiatric exam: Present: normal affect, normal mood Skin exam: Present: warm, dry Course Vital Signs 02/05/22 02/05/22 03:12 05:57 Temperature 98.3 F Pulse Rate 81 64 Respiratory 15 17 Rate Blood Pressure 129/59 129/77 O2 Sat by Pulse 100 100 Oximetry EKG Findings - EKG Comments: EKG Findings:: An EKG was obtained and was interpreted by myself. EKG showed a rate of 84, P a and all of 185, QR rastafari of 91 and QTC of 382. This EKG showed a normal sinus rhythm with no ST segment elevation or depression noted. Procedures - [place] Protocol (Time Out) Nurse: Perry Meier Medical Decision Making - Medical Decision Making Was pt. sent in by a medical professional or institution? @No Did you speak to anyone other than the patient for history? @No Did you review nursing and triage notes? @Nursing note was reviewed Were old charts reviewed? @No Differential Diagnosis? @ACS, syncope, pneumonia, COVID-19, Influenza EKG interpreted by me (3pts min.)? @As above X-rays interpreted by me (1pt min.)? @Chest x-ray was obtained and reported by myself showing no acute process CT interpreted by me (1pt min.)? @CTA of the chest was obtained and was interpreted by myself as the patient did have an elevated d-dimer and did not show any signs of PE. U/S interpreted by me (1pt. min.)? @ [none] What testing was considered but not performed? (CT, X-rays, U/S, labs)? Why? @None What meds were considered but not given? Why? @ [none] Did you discuss the management of the patient with other professionals? @None Did you reconcile home meds? @ [none] Was smoking cessation discussed for >3mins.? @ [none] Was critical care preformed (if so, how long)? @ [none] Were there social determinants of health that impacted care today? How? (Homelessness, low income, unemployed, alcoholism, drug addiction, transportation, low edu. Level, literacy, decrease access to med. care, penitentiary, rehab)? @None Was there de-escalation of care discussed even if they declined? (Discuss DNR or withdrawal of care, Hospice)? @No What co-morbidities impacted this encounter? (DM, HTN, Smoking, COPD, CAD, Cancer, CVA, Hep., AIDS, mental health diagnosis, sleep apnea, morbid obesity)? @None Was patient admitted / discharged? @The patient was seen and evaluated emergency department. Physical exam, the patient was resting in bed without any acute distress. Vital signs admission were stable. Due to the nature the patient's complaints, laboratory workup was obtained and swabs for COVID-19, influenza and RSV were obtained. Chest x-ray and CTA of the chest were also obtained as the patient did have an elevated d- dimer. All laboratory workup was within normal limits however the patient was positive for COVID-19. The patient likely had presyncopal episode secondary to this infection and she was deemed stable for discharge as she denied of any further symptoms at this time. The patient was advised to continue to monitor symptoms and to report back to the emergency department if she any worsening shortness of breath or difficulty in breathing. The patient was agreeable to th is and was discharged home in stable condition. Undiagnosed new problem with uncertain prognosis? @ [none] Drug Therapy requiring intensive monitoring for toxicity (Heparin, Nitro, Insulin, Cardizem)? @ [none] Were any procedures done? @ [none] Diagnosis/symptom? @Acute COVID-19 infection Acute, or Chronic, or Acute on Chronic? @Acute Uncomplicated (without systemic symptoms) or Complicated (systemic symptoms)? @Uncomplicated Side effects of treatment? @ [none] Exacerbation, Progression, or Severe Exacerbation] @ [no] Poses a threat to life or bodily function? @ [no] - Lab Data Result diagrams: 02/05/22 03:26 02/05/22 03:26 Lab Results 02/05/22 02/05/22 02/05/22 Range/Units 03: 03: 03:26 WBC 6.5 (3.8-10.6) k/uL RBC 4.38 (3.80-5.40) m/uL Hgb 13.4 (11.4-16.0) gm/dL Hct 37.4 (34.0-46.0) % MCV 85.5 (80.0-100.0) fL MCH 30.7 (25.0-35.0) pg MCHC 35.9 (31.0-37.0) g/dL RDW 13.5 (11.5-15.5) % Plt Count 216 (150-450) k/uL MPV 7.5 Neutrophils % 71 % Lymphocytes % 16 % Monocytes % 8 % Eosinophils % 1 % Basophils % 1 % Neutrophils # 4.6 (1.3-7.7) k/uL Lymphocytes # 1.0 (1.0-4.8) k/uL Monocytes # 0.5 (0-1.0) k/uL Eosinophils # 0.1 (0-0.7) k/uL Basophils # 0.0 (0-0.2) k/uL D-Dimer 0.77 H (<0.60) mg/L FEU Sodium 135 L (137-145) mmol/L Potassium 3.9 (3.5-5.1) mmol/L Chloride 108 H (98-107) mmol/L Carbon Dioxide 21 L (22-30) mmol/L Anion Gap 6 mmol/L BUN 11 (7-17) mg/dL Creatinine 0.62 (0.52-1.04) mg/dL Est GFR (CKD-EPI)AfAm >90 (>60 ml/min/1.73 sqM) Est GFR (CKD-EPI)NonAf >90 (>60 ml/min/1.73 sqM) Glucose 115 H (74-99) mg/dL Calcium 9.2 (8.4-10.2) mg/dL Magnesium 1.9 (1.6-2.3) mg/dL Total Bilirubin 0.5 (0.2-1.3) mg/dL AST 23 (14-36) U/L ALT 19 (4-34) U/L Alkaline Phosphatase 121 (38-126) U/L Troponin I (0.000-0.034) ng/mL NT-Pro-B Natriuret Pep pg/mL Total Protein 5.9 L (6.3-8.2) g/dL Albumin 3.6 (3.5-5.0) g/dL Influenza Type A (PCR) (Not Detectd) Influenza Type B (PCR) (Not Detectd) RSV (PCR) (Not Detectd) SARS-CoV-2 (PCR) (Not Detectd) 02/05/22 02/05/22 02/05/22 Range/Units 03:26 03:26 03:31 WBC (3.8-10.6) k/uL RBC (3.80-5.40) m/uL Hgb (11.4-16.0) gm/dL Hct (34.0-46.0) % MCV (80.0-100.0) fL MCH (25.0-35.0) pg MCHC (31.0-37.0) g/dL RDW (11.5-15.5) % Plt Count (150-450) k/uL MPV Neutrophils % % Lymphocytes % % Monocytes % % Eosinophils % % Basophils % % Neutrophils # (1.3-7.7) k/uL Lymphocytes # (1.0-4.8) k/uL Monocytes # (0-1.0) k/uL Eosinophils # (0-0.7) k/uL Basophils # (0-0.2) k/uL D-Dimer (<0.60) mg/L FEU Sodium (137-145) mmol/L Potassium (3.5-5.1) mmol/L Chloride (98-107) mmol/L Carbon Dioxide (22-30) mmol/L Anion Gap mmol/L BUN (7-17) mg/dL Creatinine (0.52-1.04) mg/dL Est GFR (CKD-EPI)AfAm (>60 ml/min/1.73 sqM) Est GFR (CKD-EPI)NonAf (>60 ml/min/1.73 sqM) Glucose (74-99) mg/dL Calcium (8.4-10.2) mg/dL Magnesium (1.6-2.3) mg/dL Total Bilirubin (0.2-1.3) mg/dL AST (14-36) U/L ALT (4-34) U/L Alkaline Phosphatase (38-126) U/L Troponin I <0.012 (0.000-0.034) ng/mL NT-Pro-B Natriuret Pep 248 pg/mL Total Protein (6.3-8.2) g/dL Albumin (3.5-5.0) g/dL Influenza Type A (PCR) Not Detected (Not Detectd) Influenza Type B (PCR) Not Detected (Not Detectd) RSV (PCR) Not Detected (Not Detectd) SARS-CoV-2 (PCR) Detected A (Not Detectd) Disposition Clinical Impression: COVID-19 Disposition: HOME SELF-CARE Condition: Stable Is patient prescribed a controlled substance at d/c from ED?: No Referrals: Haydee Charlton DO [Primary Care Provider] - 1-2 days Time of Disposition: 05:35
[2022-02-05 05:58] VITALS: BP 129/77; PULSE 64; RESP 17
== END 2022-02-05 05:58 | disposition home or self-care (01) ==
LOC: EC 03:03
DX: U07.1 COVID-19 (principal); K21.9 Gastro-esophageal reflux disease without esophagitis; F41.9 Anxiety disorder, unspecified; F32.A Depression, unspecified; Z87.891 Personal history of nicotine dependence; Z79.82 Long term (current) use of aspirin; Z79.899 Other long term (current) drug therapy; Z88.5 Allergy status to narcotic agent
CPT/HCPCS: 36415; 93005; 85379; 83880; 80053; 83735; 84484; 85025; 87636; 71046; 71275; 99285; Q9967

== ENCOUNTER → 2022-06-04 | Outpatient (CLI) | payer MEDICARE ==
--- NOTE | 2022-06-04 16:37 | MR ---
EXAMINATION TYPE: MR brain wo/w con DATE OF EXAM: 06/04/2022 COMPARISON: NONE HISTORY: Memory loss and altered mental status TECHNIQUE: Multiplanar, multisequence images of the brain and brainstem is performed without and with IV contras t, utilizing 8 mL intravenous Gadavist . FINDINGS: Diffusion weighted images demonstrate no evidence of a recent infarct or other diffusion ab normality. There is mild ventricular and sulcal prominence. Occasional tiny focus of T2 hyperintensi ty is seen throughout the white matter bilaterally. T2 Star weighted images show no suspicious intrap arenchymal blood product. Midline structures demonstrate normal morphology. The craniocervical junction appears within normal limits. Post contrast images demonstrate no abnormal enhancement. The dural venous sinuses appear pa tent. The visualized sinuses are clear and the globes are intact. Nasal septum is deviated to right o f midline. IMPRESSION: Mild diffuse age-related cerebral atrophy and chronic small vessel ischemic change. No ab normal enhancement.
== END | disposition home or self-care (01) ==
LOC: RADMRIMAIN 08:20
PROVIDERS: ATTEND Family Medicine
DX: G31.1 Senile degeneration of brain, not elsewhere classified (principal); G31.9 Degenerative disease of nervous system, unspecified; R41.82 Altered mental status, unspecified; I67.82 Cerebral ischemia
CPT/HCPCS: 70553; A9585

== ENCOUNTER 2022-07-18 15:44 | Observation (INO) | payer MEDICARE ==
[2022-07-18 17:54] LABS: Basophils % (A) 0 %; Eosinophils # (A) 0.1 k/uL (0-0.7); Eosinophils % (A) 2 %; Lymphocytes # (A) 1.7 k/uL (1.0-4.8); Lymphocytes % (A) 25 %; MCH 30.5 pg (25.0-35.0); MCHC 34.9 g/dL (31.0-37.0); MCV 87.4 fL (80.0-100.0); Mean Platelet Volume 7.2; Monocytes # (A) 0.4 k/uL (0-1.0); Monocytes % (A) 5 %; Neutrophils # (A) 4.5 k/uL (1.3-7.7); Neutrophils % (A) 65 %; Platelet Count 274 k/uL (150-450); RBC 4.58 m/uL (3.80-5.40); RDW 13.4 % (11.5-15.5); WBC 6.8 k/uL (3.8-10.6)
[2022-07-18 18:09] LABS: Partial Thromboplastin Time 23.8 sec (22.0-30.0); Prothrombin Time 10.8 sec (9.0-12.0)
[2022-07-18 18:10] LABS: ALT 26 U/L (4-34); AST 27 U/L (14-36); African American GFR (CKD) >90 (>60 ml/min/1.73 sqM); Albumin 4.1 g/dL (3.5-5.0); Alkaline Phosphatase 122 U/L (38-126); Anion Gap 7 mmol/L; Blood Urea Nitrogen 15 mg/dL (7-17); Calcium 9.3 mg/dL (8.4-10.2); Carbon Dioxide 25 mmol/L (22-30); Chloride 108 mmol/L (98-107); Glucose 90 mg/dL (74-99); Non-African American GFR(CKD) >90 (>60 ml/min/1.73 sqM); Potassium 4.1 mmol/L (3.5-5.1); Sodium 140 mmol/L (137-145); Total Bilirubin 0.6 mg/dL (0.2-1.3); Total Protein 6.5 g/dL (6.3-8.2)
--- NOTE | 2022-07-18 19:03 | ED ---
GI Bleed HPI - General Chief complaint: GI Bleed Stated complaint: DI[place]HEA-COFF[place] GROUNDS Time Seen by Provider: 07/18/22 19:02 Source: patient Mode of arrival: ambulatory Limitations: no limitations - History of Present Illness Initial comments: 72-year-old female past history of GERD who presents emergency Department with 3 episodes of dark stooling. States that while at home earlier today she had 3 episodes of stools which were dark maroon coloration. Denies history of GI bleeding in the past. No peptic ulcer history. Does admit to some left lower quadrant abdominal pain. Has a history of diverticulosis however no acute issues with diverticulitis. Bright red blood per rectum. No nausea or vomiting. No fevers. She is not on any blood thinners. No other alleviating, precipitating or modifying factors - Related Data Home Medications Medication Instructions Recorded Confirmed Aspirin [[place] Aspirin EC] 81 mg PO DAILY 02/11/21 07/18/22 PARoxetine [Paxil] 10 mg PO DAILY 02/11/21 07/18/22 Pantoprazole [Protonix] 40 mg PO DAILY 02/11/21 07/18/22 Pramipexole [Mirapex] 0.25 mg PO DAILY 02/11/21 07/18/22 Donepezil [Aricept] 5 mg PO HS 07/18/22 07/18/22 Metoprolol Succinate [Metoprolol 37.5 mg PO DAILY 07/18/22 07/18/22 Succinate ER] Allergies Allergy/AdvReac Type Severity Reaction Status Date / Time codeine AdvReac Confusion Verified 07/18/22 21:15 Review of Systems ROS Statement: Those systems with pertinent positive or pertinent negative responses have been documented in the HPI. ROS Other: All systems not noted in ROS Statement are negative. Past Medical History Past Medical History: GERD/Reflux Additional Past Medical History / Comment(s): kidney stones, ovarian cysts, hx migraines, IBS, urinary leakage, History of Any Multi-Drug Resistant Organisms: None Reported Past Surgical History: Bladder Surgery, Hysterectomy, Joint Replacement, Ortho pedic Surgery Additional Past Surgical History / Comment(s): bladder suspension x 2, rt knee replacement, lt hand surgery Past Anesthesia/Blood Transfusion Reactions: No Reported Reaction Past Psychological History: Anxiety, Depression Smoking Status: Former smoker Past Alcohol Use History: Occasional Past Drug Use History: None Reported - Past Family History Mother Family Medical History: No Reported History General Exam Limitations: no limitations General appearance: alert, in no apparent distress Head exam: Present: atraumatic, normocephalic, normal inspection Eye exam: Present: normal appearance, PERRL, EOMI. Absent: scleral icterus, conjunctival injection, periorbital swelling ENT exam: Present: normal exam, mucous membranes moist Neck exam: Present: normal inspection. Absent: tenderness, meningismus, lymphadenopathy Respiratory exam: Present: normal lung sounds bilaterally. Absent: respiratory distress, wheezes, rales, rhonchi, stridor Cardiovascular Exam: Present: regular rate, normal rhythm, normal heart sounds. Absent: systolic murmur, diastolic murmur, rubs, gallop, clicks GI/Abdominal exam: Present: soft, normal bowel sounds. Absent: distended, tenderness, guarding, rebound, rigid Rectal exam: Present: black stool Extremities exam: Present: normal inspection, full ROM, normal capillary refill. Absent: tenderness, pedal edema, joint swelling, calf tenderness Back exam: Present: normal inspection Neurological exam: Present: alert, oriented X3, CN II-XII intact Psychiatric exam: Present: normal affect, normal mood Skin exam: Present: warm, dry, intact, normal color. Absent: rash Course Vital Signs 07/18/22 07/18/22 07/18/22 15:47 20:00 21:23 Temperature 97.9 F Pulse Rate 68 58 L 58 L Pulse Rate [ Supine Pulse Oximetery] Respiratory 20 15 15 Rate Blood Pressure 154/71 137/67 137/67 Blood Pressure [Left Arm Supine] O2 Sat by Pulse 98 95 95 Oximetry 07/19/22 00:19 Temperature 97.7 F Pulse Rate Pulse Rate [ 55 L Supine Pulse Oximetery] Respiratory 18 Rate Blood Pressure Blood Pressure 105/59 [Left Arm Supine] O2 Sat by Pulse 97 Oximetry Medical Decision Making - Medical Decision Making Was pt. sent in by a medical professional or institution (, PA, DAIRY SCIENCE TEACHER, urgent care, hospital, or long-term...) When possible be specific @ -No Did you speak to anyone other than the patient for history (EMS, parent, family, police, friend...)? What history was obtained from this source @ -No Did you review nursing and triage notes (agree or disagree)? Why? @ -I reviewed and agree with nursing and triage notes Were old charts reviewed (outside hosp., previous admission, EMS record, old EKG, old radiological studies, urgent care reports/EKG's, long-term records)? Report findings @ -No old charts were reviewed Differential Diagnosis (chest pain, altered mental status, abdominal pain women, abdominal pain men, vaginal bleeding, weakness, fever, dyspnea, syncope, headache, dizziness, GI bleed, back pain, seizure, CVA, palpatations, mental health, musculoskeletal)? @ -Differential GI Bleed: Esophageal varices, aortoenteric fistula, [place], gastritis, peptic ulcer disease, diverticulosis, inflammatory bowel disease, hemorrhoids, fissure, colitis, malignancy, Meckels diverticulum, this is not meant to be an all- inclusive list. EKG interpreted by me (3pts min.). @ -EKG read by me and demonstrates sinus bradycardia with a rate of 55. IA interval 210. QRS 87. QTC of 398. No acute ST segment elevations. Inverted T-wave in lead 3 X-rays interpreted by me (1pt min.). @ -None done CT interpreted by me (1pt min.). @ -CT interpreted by me and demonstrates acute diverticulitis U/S interpreted by me (1pt. min.). @ -None done What testing was considered but not performed or refused? (CT, X-rays, U/S, la bs)? Why? @ -None What meds were considered but not given or refused? Why? @ -None Did you discuss the management of the patient with other professionals (professionals i.e. , PA, DAIRY SCIENCE TEACHER, lab, RT, psych nurse, social media manager, cmv driver, teacher, military police officer, test case developer)? Give summary @ -Discussed case with Dr. Jensen who accepted admission Was smoking cessation discussed for >3mins.? @ -No Was critical care preformed (if so, how long)? @ -No Were there social determinants of health that impacted care today? How? (Homelessness, low income, unemployed, alcoholism, drug addiction, transportation, low edu. Level, literacy, decrease access to med. care, snf, rehab)? @ -No Was there de-escalation of care discussed even if they declined (Discuss DNR or withdrawal of care, Hospice)? DNR status @ -No What co-morbidities impacted this encounter? (DM, HTN, Smoking, COPD, CAD, Cancer, CVA, ARF, Chemo, Hep., AIDS, mental health diagnosis, sleep apnea, morbid obesity)? @ -None Was patient admitted / discharged? Hospital course, mention meds given and route, prescriptions, significant lab abnormalities, going to OR and other pertinent info. @ -Upon arrival patient was placed into room 18. A thorough history and physical exam was performed. IV access was established laboratory studies were conducted. Rectal exam was performed which demonstrates dark stools. Patient hemodynamically stable. Hemoccult is positive. CT demonstrates diverticulitis. She is started on antibiotics. He recommended admission for observation for which the patient was agreeable. Spoke with Dr. Jensen who agreed to admit the patient. We'll place Dr. Golden on consult Undiagnosed new problem with uncertain prognosis? @ -Yes Drug Therapy requiring intensive monitoring for toxicity (Heparin, Nitro, Insulin, Cardizem)? @ -No Were any procedures done? @ -No Diagnosis/symptom? @ -Acute melana, acute diverticulitis Acute, or Chronic, or Acute on Chronic? @ -Acute Uncomplicated (without systemic symptoms) or Complicated (systemic symptoms)? @ -Complicated Side effects of treatment? @ -No Exacerbation, Progression, or Severe Exacerbation? @ -No Poses a threat to life or bodily function? How? (Chest pain, [place], OR, pneumonia, PE, COPD, DKA, ARF, appy, cholecystitis, CVA, Diverticulitis, Homicidal, Suicidal, threat to staff... and all critical care pts) @ -Yes significant lower GI bleeding can cause patient to become unstable - Lab Data Result diagrams: 07/18/22 17:40 07/18/22 17:40 Lab Results 07/18/22 07/18/22 07/18/22 Range/Units 17:40 17:40 17:40 WBC 6.8 (3.8-10.6) k/uL RBC 4.58 (3.80-5.40) m/uL Hgb 14.0 (11.4-16.0) gm/dL Hct 40.0 (34.0-46.0) % MCV 87.4 (80.0-100.0) fL MCH 30.5 (25.0-35.0) pg MCHC 34.9 (31.0-37.0) g/dL RDW 13.4 (11.5-15.5) % Plt Count 274 (150-450) k/uL MPV 7.2 Neutrophils % 65 % Lymphocytes % 25 % Monocytes % 5 % Eosinophils % 2 % Basophils % 0 % Neutrophils # 4.5 (1.3-7.7) k/uL Lymphocytes # 1.7 (1.0-4.8) k/uL Monocytes # 0.4 (0-1.0) k/uL Eosinophils # 0.1 (0-0.7) k/uL Basophils # 0.0 (0-0.2) k/uL PT 10.8 (9.0-12.0) sec INR 1.0 (<1.2) APTT 23.8 (22.0-30.0) sec Sodium 140 (137-145) mmol/L Potassium 4.1 (3.5-5.1) mmol/L Chloride 108 H (98-107) mmol/L Carbon Dioxide 25 (22-30) mmol/L Anion Gap 7 mmol/L BUN 15 (7-17) mg/dL Creatinine 0.62 (0.52-1.04) mg/dL Est GFR (CKD-EPI)AfAm >90 (>60 ml/min/1.73 sqM) Est GFR (CKD-EPI)NonAf >90 (>60 ml/min/1.73 sqM) Glucose 90 (74-99) mg/dL Calcium 9.3 (8.4-10.2) mg/dL Total Bilirubin 0.6 (0.2-1.3) mg/dL AST 27 (14-36) U/L ALT 26 (4-34) U/L Alkaline Phosphatase 122 (38-126) U/L Troponin I (0.000-0.034) ng/mL Total Protein 6.5 (6.3-8.2) g/dL Albumin 4.1 (3.5-5.0) g/dL Stool Occult Blood (Negative) Blood Type Blood Type Confirm Blood Type Recheck Bld Type Recheck Status Antibody Screen Spec Expiration Date 07/18/22 07/18/22 07/18/22 Range/Units 17:40 17:46 18:00 WBC (3.8-10.6) k/uL RBC (3.80-5.40) m/uL Hgb (11.4-16.0) gm/dL Hct (34.0-46.0) % MCV (80.0-100.0) fL MCH (25.0-35.0) pg MCHC (31.0-37.0) g/dL RDW (11.5-15.5) % Plt Count (150-450) k/uL MPV Neutrophils % % Lymphocytes % % Monocytes % % Eosinophils % % Basophils % % Neutrophils # (1.3-7.7) k/uL Lymphocytes # (1.0-4.8) k/uL Monocytes # (0-1.0) k/uL Eosinophils # (0-0.7) k/uL Basophils # (0-0.2) k/uL PT (9.0-12.0) sec INR (<1.2) APTT (22.0-30.0) sec Sodium (137-145) mmol/L Potassium (3.5-5.1) mmol/L Chloride (98-107) mmol/L Carbon Dioxide (22-30) mmol/L Anion Gap mmol/L BUN (7-17) mg/dL Creatinine (0.52-1.04) mg/dL Est GFR (CKD-EPI)AfAm (>60 ml/min/1.73 sqM) Est GFR (CKD-EPI)NonAf (>60 ml/min/1.73 sqM) Glucose (74-99) mg/dL Calcium (8.4-10.2) mg/dL Total Bilirubin (0.2-1.3) mg/dL AST (14-36) U/L ALT (4-34) U/L Alkaline Phosphatase (38-126) U/L Troponin I <0.012 (0.000-0.034) ng/mL Total Protein (6.3-8.2) g/dL Albumin (3.5-5.0) g/dL Stool Occult Blood (Negative) Blood Type A Positive Blood Type Confirm A Positive Blood Type Recheck No Previous Record Bld Type Recheck Status CABO Indicated Antibody Screen NEGATIVE Spec Expiration Date 07/21/2022 - 234507/18/22 Range/Units 19:36 WBC (3.8-10.6) k/uL RBC (3.80-5.40) m/uL Hgb (11.4-16.0) gm/dL Hct (34.0-46.0) % MCV (80.0-100.0) fL MCH (25.0-35.0) pg MCHC (31.0-37.0) g/dL RDW (11.5-15.5) % Plt Count (150-450) k/uL MPV Neutrophils % % Lymphocytes % % Monocytes % % Eosinophils % % Basophils % % Neutrophils # (1.3-7.7) k/uL Lymphocytes # (1.0-4.8) k/uL Monocytes # (0-1.0) k/uL Eosinophils # (0-0.7) k/uL Basophils # (0-0.2) k/uL PT (9.0-12.0) sec INR (<1.2) APTT (22.0-30.0) sec Sodium (137-145) mmol/L Potassium (3.5-5.1) mmol/L Chloride (98-107) mmol/L Carbon Dioxide (22-30) mmol/L Anion Gap mmol/L BUN (7-17) mg/dL Creatinine (0.52-1.04) mg/dL Est GFR (CKD-EPI)AfAm (>60 ml/min/1.73 sqM) Est GFR (CKD-EPI)NonAf (>60 ml/min/1.73 sqM) Glucose (74-99) mg/dL Calcium (8.4-10.2) mg/dL Total Bilirubin (0.2-1.3) mg/dL AST (14-36) U/L ALT (4-34) U/L Alkaline Phosphatase (38-126) U/L Troponin I (0.000-0.034) ng/mL Total Protein (6.3-8.2) g/dL Albumin (3.5-5.0) g/dL Stool Occult Blood Positive H (Negative) Blood Type Blood Type Confirm Blood Type Recheck Bld Type Recheck Status Antibody Screen Spec Expiration Date Disposition Clinical Impression: Melena, Diverticulitis of both large and small intestine Disposition: ADMITTED IP TO THIS [facility] Condition: Stable Is patient prescribed a controlled substance at d/c from ED?: No Time of Disposition: 21:43 Decision to Admit Reason: Admit from EC Decision Date: 07/18/22 Decision Time: 21:43
--- NOTE | 2022-07-18 21:00 | CT ---
EXAMINATION TYPE: CT abdomen pelvis w con CT DLP: 966.6 mGycm, Automated exposure control for dose reduction was used. DATE OF EXAM: 07/18/2022 8:39 PM COMPARISON: CT abdomen pelvis most recent from 08/15/2019 CLINICAL INDICATION:Female, 72 years old with history of llq pain, rectal bleed; LLQ pain, dark stool TECHNIQUE: Axial CT of the abdomen and pelvis. Sagittal and coronal reformats were created on a [employer] workstation. Contrast used:100 mL of Isovue 300 with IV Contrast, Oral contrast used: without Oral Contrast FINDINGS: LOWER CHEST: Unremarkable ABDOMEN LIVER: Unremarkable GALLBLADDER AND BILE DUCTS: Unremarkable. PANCREAS: Unremarkable. SPLEEN: Unremarkable. ADRENAL GLANDS: Unremarkable. KIDNEYS AND URETERS: No evidence of hydronephrosis. Nonobstructing left 3 mm calculus.. The ureters a re unremarkable. Left simple appearing renal cysts.. PELVIS BLADDER: Unremarkable REPRODUCTIVE: Unremarkable. ABDOMEN & PELVIS STOMACH AND BOWEL: Small hiatal hernia is present. No evidence of bowel obstruction. Second portion d uodenal diverticulum. Scattered colonic diverticula with minimal inflammation changes are seen in the left pelvis around diverticula. r mild rectal wall thickening measuring up to 8 mm circumferentially . Focus of gas posterior approximates a loop of small bowel is suspicious for small bowel diverticulum series 202 image 54 given there are multiple diverticula throughout the small bowel in the visualized abdomen. PERITONEUM/RETROPERITONEUM: No evidence of pneumoperitoneum or free fluid. VASCULATURE: No evidence of aortic aneurysm. MUSCULOSKELETAL: No acute osseous abnormalities LYMPH NODES: No gross evidence for lymphadenopathy. SOFT TISSUE/ABDOMINAL WALL: Unremarkable IMPRESSION: 1. Mild circumferential wall thickening correlate for proctitis. 2. Minimal fat stranding changes around a few colonic diverticula on the pelvis mild diverticulitis. 3. Extensive diverticula throughout the colon and small bowel. No bowel wall thickening visualized. Second portion duodenal diverticulum. 4. Small hiatal hernia. 5. Left nonobstructing 3 mm calculus.
[2022-07-18] MEDS ORDERED: NALOXONE 0.4 MG/ML 1 ML VIAL IV PRN (21:43)
[2022-07-18] MEDS ORDERED: cefTRIAXone IN SWFI 1,000 MG/10 ML SYRINGE IVP STA (21:48)
[2022-07-18] MEDS ORDERED: metroNIDAZOLE-NS PMX 500 MG in SALINE 1 100ML.BAG IVPB STA (21:49)
[2022-07-19] MEDS ORDERED: PANTOPRAZOLE 40 MG TABLET PO SCH (07:30)
[2022-07-19 07:35] LABS: Basophils % (A) 1 %; Eosinophils # (A) 0.1 k/uL (0-0.7); Eosinophils % (A) 3 %; HCT 38.1 % (34.0-46.0); Lymphocytes # (A) 1.4 k/uL (1.0-4.8); Lymphocytes % (A) 28 %; MCH 30.4 pg (25.0-35.0); MCV 89.3 fL (80.0-100.0); Mean Platelet Volume 7.2; Monocytes # (A) 0.3 k/uL (0-1.0); Monocytes % (A) 5 %; Neutrophils # (A) 3.2 k/uL (1.3-7.7); Neutrophils % (A) 61 %; Platelet Count 231 k/uL (150-450); RBC 4.27 m/uL (3.80-5.40); RDW 13.3 % (11.5-15.5); WBC 5.2 k/uL (3.8-10.6)
[2022-07-19 07:41] LABS: African American GFR (CKD) >90 (>60 ml/min/1.73 sqM); Anion Gap 4 mmol/L; Blood Urea Nitrogen 13 mg/dL (7-17); Calcium 8.8 mg/dL (8.4-10.2); Carbon Dioxide 27 mmol/L (22-30); Chloride 106 mmol/L (98-107); Glucose 101 mg/dL (74-99); Non-African American GFR(CKD) >90 (>60 ml/min/1.73 sqM); Potassium 4.1 mmol/L (3.5-5.1); Sodium 137 mmol/L (137-145)
[2022-07-19] MEDS ORDERED: cefTRIAXone IN SWFI 1,000 MG/10 ML SYRINGE IVP SCH (09:00)
[2022-07-19] MEDS: PARoxetine 10 MG TAB PO SCH (09:58)
[2022-07-19] MEDS: METOPROLOL SUCCINATE (ER) 25 MG TAB.ER.24H PO SCH (09:59)
[2022-07-19] MEDS: PRAMIPEXOLE 0.25 MG TAB PO SCH (09:59)
[2022-07-19] MEDS: metroNIDAZOLE-NS PMX 500 MG in SALINE 1 100ML.BAG IVPB SCH ×3 (10:00→21:33)
[2022-07-19] MEDS ORDERED: ACETAMINOPHEN TAB 325 MG TAB PO PRN (10:01)
[2022-07-19] MEDS ORDERED: ONDANSETRON 4 MG/2 ML VIAL IVP PRN (10:01)
[2022-07-19] MEDS: SODIUM CHLORIDE 0.9% 1,000 ML IV SCH ×2 (10:09→21:33)
[2022-07-19] MEDS ORDERED: PANTOPRAZOLE 40 MG/10 ML VIAL IV SCH (10:15)
--- NOTE | 2022-07-19 13:59 | HP ---
HISTORY AND PHYSICAL PRESENTING COMPLAINT: Abdominal pain, melena. HISTORY OF PRESENTING ILLNESS: The patient is a 72-year-old lady with past medical history significant for gastroesophageal reflux disease, IBS, history of kidney stones, who presented to the emergency department with complaints of dark stool. The patient said she has 3 episodes of dark stool that started prior to this presentation. She denied previous history of gastrointestinal bleed or history of peptic ulcer disease. The patient did complain of left lower quadrant abdominal pain. Denies associated nausea, vomiting, fever, chills. Denies bright red blood per rectum. Workup initiated in ER included comprehensive metabolic panel, which showed normal liver profile, CBC showed hemoglobin of 14, platelet count of 274, white cell count within normal limits. The patient was admitted to medical floor with followup testing including CT abdomen and pelvis done, which showed evidence of proctocolitis as well as diverticulitis. PAST MEDICAL HISTORY: History of kidney stone, ovarian cyst, gastroesophageal reflux disease, history of migraine, history of IBS. PAST SURGICAL HISTORY: Hysterectomy, bladder surgery, joint replacement, orthopedic surgery, bladder suspension surgery, right knee replacement, left hand surgery. ALLERGIES: Codeine. FAMILY HISTORY: Significant for heart disease in brother. No significant history of cancer in the family. SOCIAL HISTORY: Denies smoking, admits to occasional use of alcohol. Denies illicit drug use. REVIEW OF SYSTEMS: The patient denies fever, chills, nausea, vomiting. She did admit to melena, black stool, and left lower quadrant abdominal pain. Denies chest pain. PHYSICAL EXAMINATION: VITAL SIGNS: Temperature 98.2, pulse 70, respirations 18, blood pressure 145/72, saturation 98% on room air. GENERAL: The patient is well-developed, alert, and oriented x4. No apparent distress. HEENT: Eyes, pupils equal and reactive bilaterally. CARDIOVASCULAR: Regular rate. No murmur. EXTREMITIES: No lower extremity edema. ABDOMEN: Soft, nontender. No guarding. No rigidity. LUNGS: Clear to auscultation. No wheeze. No rhonchi. No rales. GENITOURINARY: No suprapubic tenderness. NEUROLOGICAL: Alert and oriented x4. No apparent distress. Appears at baseline. ASSESSMENT: 1. Acute proctocolitis with diverticulitis. 2. Melena, rule out gastrointestinal bleed. 3. Essential hypertension. 4. Gastroesophageal reflux disease. PLAN: 1. CT abdomen and pelvis completed, follow up on stool studies including fecal calprotectin and stool cultures. 2. Continue the patient on full liquid diet. 3. Continue the patient on Rocephin and Flagyl. 4. Advance diet as tolerated. 5. Continue with pain control with Tylenol as needed. 6. Use Zofran as needed for nausea/vomiting. 7. SCDs for DVT prophylaxis, not on heparin secondary to high bleeding risk. Total time spent on H and P is 35 minutes. Code status is FULL CODE. MMODL / IJN: [id number] /
--- NOTE | 2022-07-19 14:32 | P.GSCN ---
History of Present Illness Consult date: 07/19/22 History of present illness: Patient reports dark stools ongoing for last 2-3 days including severe diverticulosis. She confirms eating seeds including almonds and walnuts and a salad. She has [place] salad. She also had trouble with knots. No prior events. Hemoglobin stable. Prior colonoscopy done last year by Dr. Gary. Recommend upper endoscopy for further assessment. Past Medical History Past Medical History: GERD/Reflux Additional Past Medical History / Comment(s): kidney stones, ovarian cysts, hx migraines, IBS, urinary leakage, History of Any Multi-Drug Resistant Organisms: None Reported Past Surgical History: Bladder Surgery, Hysterectomy, Joint Replacement, Orthopedic Surgery Additional Past Surgical History / Comment(s): bladder suspension x 2, rt knee replacement, lt hand surgery Past Anesthesia/Blood Transfusion Reactions: No Reported Reaction Past Psychological History: Anxiety, Depression Smoking Status: Former smoker Past Alcohol Use History: Occasional Past Drug Use History: None Reported - Past Family History Mother Family Medical History: No Reported History Medications and Allergies Home Medications Medication Instructions Recorded Confirmed Type Aspirin [Norco Aspirin EC] 81 mg PO DAILY 02/11/21 07/18/22 History PARoxetine [Paxil] 10 mg PO DAILY 02/11/21 07/18/22 History Pantoprazole [Protonix] 40 mg PO DAILY 02/11/21 07/18/22 History Pramipexole [Mirapex] 0.25 mg PO DAILY 02/11/21 07/18/22 History Donepezil [Aricept] 5 mg PO HS 07/18/22 07/18/22 History Metoprolol Succinate [Metoprolol 37.5 mg PO DAILY 07/18/22 07/18/22 History Succinate ER] Allergies Allergy/AdvReac Type Severity Reaction Status Date / Time codeine AdvReac Confusion Verified 07/18/22 21:15 Surgical - Exam Vital Signs Temp Pulse Resp BP Pulse Ox 97.9 F 68 20 154/71 98 07/18/22 15:47 07/18/22 15:47 07/18/22 15:47 07/18/22 15:47 07/18/22 15:47 Results - Labs 07/19/22 06:48 07/19/22 06:48 Abnormal Lab Results - Last 24 Hours (Table) 07/18/22 07/18/2223 Range/Units 17:40 19:36 06:48 Chloride 108 H (98-107) mmol/L Glucose 101 H (74-99) mg/dL Stool Occult Blood Positive H (Negative) Diabetes panel 07/18/22 07/19/22 Range/Units 17:40 06:48 Sodium 140 137 (137-145) mmol/L Potassium 4.1 4.1 (3.5-5.1) mmol/L Chloride 108 H 106 (98-107) mmol/L Carbon Dioxide 25 27 (22-30) mmol/L BUN 15 13 (7-17) mg/dL Creatinine 0.62 0.59 (0.52-1.04) mg/dL Glucose 90 101 H (74-99) mg/dL Calcium 9.3 8.8 (8.4-10.2) mg/dL AST 27 (14-36) U/L ALT 26 (4-34) U/L Alkaline Phosphatase 122 (38-126) U/L Total Protein 6.5 (6.3-8.2) g/dL Albumin 4.1 (3.5-5.0) g/dL Calcium panel 07/18/22 07/19/22 Range/Units 17:40 06:48 Calcium 9.3 8.8 (8.4-10.2) mg/dL Albumin 4.1 (3.5-5.0) g/dL Pituitary panel 07/18/22 07/19/22 Range/Units 17:40 06:48 Sodium 140 137 (137-145) mmol/L Potassium 4.1 4.1 (3.5-5.1) mmol/L Chloride 108 H 106 (98-107) mmol/L Carbon Dioxide 25 27 (22-30) mmol/L BUN 15 13 (7-17) mg/dL Creatinine 0.62 0.59 (0.52-1.04) mg/dL Glucose 90 101 H (74-99) mg/dL Calcium 9.3 8.8 (8.4-10.2) mg/dL Adrenal panel 07/18/22 07/19/22 Range/Units 17:40 06:48 Sodium 140 137 (137-145) mmol/L Potassium 4.1 4.1 (3.5-5.1) mmol/L Chloride 108 H 106 (98-107) mmol/L Carbon Dioxide 25 27 (22-30) mmol/L BUN 15 13 (7-17) mg/dL Creatinine 0.62 0.59 (0.52-1.04) mg/dL Glucose 90 101 H (74-99) mg/dL Calcium 9.3 8.8 (8.4-10.2) mg/dL Total Bilirubin 0.6 (0.2-1.3) mg/dL AST 27 (14-36) U/L ALT 26 (4-34) U/L Alkaline Phosphatase 122 (38-126) U/L Total Protein 6.5 (6.3-8.2) g/dL Albumin 4.1 (3.5-5.0) g/dL
[2022-07-19] MEDS ORDERED: HEPARIN SODIUM,PORCINE/PF 5,000 UNIT/0.5 ML SYRINGE SQ SCH (16:00)
[2022-07-20 06:50] LABS: Basophils % (A) 1 %; Eosinophils # (A) 0.1 k/uL (0-0.7); Eosinophils % (A) 2 %; HCT 40.4 % (34.0-46.0); HGB 13.5 gm/dL (11.4-16.0); Lymphocytes # (A) 1.3 k/uL (1.0-4.8); Lymphocytes % (A) 28 %; MCHC 33.5 g/dL (31.0-37.0); MCV 89.4 fL (80.0-100.0); Mean Platelet Volume 7.3; Monocytes # (A) 0.3 k/uL (0-1.0); Monocytes % (A) 6 %; Neutrophils # (A) 2.9 k/uL (1.3-7.7); Neutrophils % (A) 61 %; Platelet Count 276 k/uL (150-450); RBC 4.52 m/uL (3.80-5.40); RDW 13.4 % (11.5-15.5); WBC 4.8 k/uL (3.8-10.6)
[2022-07-20 07:13] LABS: African American GFR (CKD) >90 (>60 ml/min/1.73 sqM); Anion Gap 7 mmol/L; Blood Urea Nitrogen 11 mg/dL (7-17); Calcium 9.5 mg/dL (8.4-10.2); Carbon Dioxide 26 mmol/L (22-30); Chloride 107 mmol/L (98-107); Glucose 105 mg/dL (74-99); Non-African American GFR(CKD) >90 (>60 ml/min/1.73 sqM); Potassium 4.6 mmol/L (3.5-5.1); Sodium 140 mmol/L (137-145)
[2022-07-20] MEDS: SODIUM CHLORIDE 0.9% 1,000 ML IV SCH ×2 (07:50→09:17)
[2022-07-20 07:59] VITALS: BP 131/74; PULSE 50; RESP 14; TEMP 97.7
[2022-07-20] MEDS: METOPROLOL SUCCINATE (ER) 25 MG TAB.ER.24H PO SCH (08:56)
[2022-07-20] MEDS ORDERED: PANTOPRAZOLE 40 MG/10 ML VIAL IV SCH (09:00)
[2022-07-20] MEDS: metroNIDAZOLE-NS PMX 500 MG in SALINE 1 100ML.BAG IVPB SCH (09:01)
[2022-07-20] MEDS: PARoxetine 10 MG TAB PO SCH (09:11)
[2022-07-20] MEDS: PRAMIPEXOLE 0.25 MG TAB PO SCH (09:11)
--- NOTE | 2022-07-20 11:59 | P.PN ---
Subjective Progress Note Date: 07/20/22 CHIEF COMPLAINT: GI bleed HISTORY OF PRESENT ILLNESS: Patient presented with dark stools for 2-3 days. S he is no longer having black stools. She denies any abdominal pain. She had a brown bowel movement this morning. Tolerating diet. Hemoglobin stable at 13. She also has been treated for mild diverticulitis with antibiotics. The left lower quadrant abdominal pain has resolved. Medicine service is planning discharge today. Afebrile. WBC 4.8 Hgb 13.5 plt 276. Patient wishes to have the EGD outpatient. PHYSICAL EXAM: VITAL SIGNS: Reviewed. GENERAL: Well-developed in no acute distress. HEENT: No sclera icterus. Extraocular movements grossly intact. Moist buccal mucosa. Head is atraumatic, normocephalic. ABDOMEN: Soft. Nondistended. Nontender. NEUROLOGIC: Alert and oriented. Cranial nerves II through XII grossly intact. ASSESSMENT: 1. Acute GI bleed with melanotic stools. Resolved. Hemoglobin stable. 2. Mild acute diverticulitis PLAN: -Patient can be discharged from surgical standpoint -Recommend outpatient EGD -Continue Protonix -Continue antibiotics at discharge Physician Emergency Dispatch Operator note has been reviewed by physician. Signing provider agrees with the documented findings, assessment, and plan of care. Objective - Vital Signs Vital signs: Vital Signs Temp 97.7 F 07/20/22 07:25 Pulse 50 L 07/20/22 07:25 Resp 14 07/20/22 07:25 BP 131/74 07/20/22 07:25 Pulse Ox 96 07/20/22 07:25 FiO2 Intake & Output 07/19/22 07/20/22 07/20/22 18:59 06:59 18:59 Intake Total 800 600 Balance 800 600 Intake: Intake, IV Titration 800 Amount Sodium Chloride 0.9% 1, 550 000 ml @ 100 mls/hr IV . Q10H SUDHIR Rx#:[id number] cefTRIAXone 1 gm In 50 Sodium Chloride 0.9% 50 ml @ 100 mls/hr IVPB Q24H SUDHIR Rx#:[id number] metroNIDAZOLE-NS PMX 500 200 mg In Saline 1 100ml.bag @ 100 mls/hr IVPB TID SUDHIR Rx#:[id number] Oral 600 Other: # Voids 1 # Bowel Movements 1 - Labs CBC & Chem 7: 07/20/22 06:22 07/20/22 06:22 Labs: Abnormal Lab Results - Last 24 Hours (Table) 07/20/22 Range/Units 06:22 Glucose 105 H (74-99) mg/dL
--- NOTE | 2022-07-20 11:59 | P.DS ---
Providers Date of admission: 07/18/22 21:43 Expected date of discharge: 07/20/22 Attending physician: Gopi Charlton MD Consults: 07/18/22 21:43 Consult Physician Urgent Consulting Provider: Kenji Guzman Consult Reason/Comments: Acute diverticulitis Do you want consulting provider notified?: Yes Primary care physician: Haydee Charlton Hospital Course: Final Diagnoses: Acute diverticulitis, dietary induced, reported consuming diet high in nuts and fiber, in a patient with history of diverticulosis. CT of abdomen and pelvis reported proctocolitis, diverticulitis Dark stools, melena , hemoglobin stable, OP EGD recommended per surgery, Gastroesophageal reflux disease Hypertension Hospital course: This is a 72-year-old female admitted with dark stools, acute diverticulitis, and multiple other medical issues. Maintained on IV fluids and IV Flagyl and Rocephin . Hemoglobin stable, no further dark stools or diarrhea. Consuming diet, denies abdominal pain. Denies nausea or vomiting. Home medication of baby aspirin on hold. Denies chest pain, palpitations or shortness of breath. Patient will be discharged home today in a stable condition with guarded prognosis pending clearance /recommendations per general surgery. The impression and plan of care has been dictated as directed. : I performed a history and examination of this patient, discussed the same with the dictator. I agree with the dictator's note ,documented as a scribe. Any additional findings or plans will be noted. Patient Condition at Discharge: Stable Plan - Discharge Summary New Discharge Prescriptions: New Amoxic-Pot Clav 875-125Mg [Augmentin 875-125] 1 tab PO BID 5 Days #10 tab Fluconazole [Diflucan] 150 mg PO ONCE 1 Days #1 tab Continue Pramipexole [Mirapex] 0.25 mg PO DAILY Donepezil [Aricept] 5 mg PO HS Pantoprazole [Protonix] 40 mg PO DAILY PARoxetine [Paxil] 10 mg PO DAILY Metoprolol Succinate [Metoprolol Succinate ER] 37.5 mg PO DAILY Discontinued Aspirin [Gates Aspirin EC] 81 mg PO DAILY Discharge Medication List PARoxetine [Paxil] 10 mg PO DAILY 02/11/21 [History] Pantoprazole [Protonix] 40 mg PO DAILY 02/11/21 [History] Pramipexole [Mirapex] 0.25 mg PO DAILY 02/11/21 [History] Donepezil [Aricept] 5 mg PO HS 07/18/22 [History] Metoprolol Succinate [Metoprolol Succinate ER] 37.5 mg PO DAILY 07/18/22 [History] Amoxic-Pot Clav 875-125Mg [Augmentin 875-125] 1 tab PO BID 5 Days #10 tab 07/20/22 [Rx] Fluconazole [Diflucan] 150 mg PO ONCE 1 Days #1 tab 07/20/22 [Rx] Follow up Appointment(s)/Referral(s): Haydee Charlton DO [Primary Care Provider] - 07/24/22 1:30 pm () Kenji Guzman MD [STAFF PHYSICIAN] - 07/30/22 3:15 pm (Outpatient EGD to monitor for acute bleed. Aspirin on hold until follow-up. ) Ambulatory/Diagnostic Orders: Complete Blood Count w/diff [LAB.AMB] Time Frame: 3 Days, Location: None Selected Patient Instructions/Handouts: Amoxicillin/Clavulanate Potassium (By mouth), Fluconazole (By mouth), Diverticulitis (DC) Activity/Diet/Wound Care/Special Instructions: Outpatient EGD with Dr. Guzman. Aspirin placed on hold until follow-up.
== END 2022-07-20 11:55 | disposition home or self-care (01) ==
LOC: EC 15:44 → 5NMEDONC 21:43
PROVIDERS: ADMIT Family Medicine; ATTEND Family Medicine
DX: K57.32 Diverticulitis of large intestine without perforation or abscess without bleeding (principal); K57.12 Diverticulitis of small intestine without perforation or abscess without bleeding; K21.9 Gastro-esophageal reflux disease without esophagitis; I10 Essential (primary) hypertension; Z87.442 Personal history of urinary calculi; K58.9 Irritable bowel syndrome, unspecified; R32 Unspecified urinary incontinence; Z90.710 Acquired absence of both cervix and uterus; Z96.652 Presence of left artificial knee joint; G43.909 Migraine, unspecified, not intractable, without status migrainosus; Z98.890 Other specified postprocedural states; F41.9 Anxiety disorder, unspecified; F32.A Depression, unspecified; Z87.891 Personal history of nicotine dependence; Z79.82 Long term (current) use of aspirin; Z79.899 Other long term (current) drug therapy; Z88.5 Allergy status to narcotic agent
CPT/HCPCS: 96366 ×4; 96367; 96361; 96365; 96375; 99285; 36415; 93005; 86900; 86901; 80053; 80048 ×2; 84484; 85025 ×3; 85610; 85730; 86850; 82272; 83993; 87045; 87046; 74177; G0378 ×3; J0696 ×2; C9113; Q9967

== ENCOUNTER → 2022-09-28 | Outpatient (CLI) | payer MEDICARE ==
--- NOTE | 2022-09-29 08:35 | MM ---
Reason for Exam: Screening (asymptomatic). Last screening mammogram was performed 12 month(s) ago. Patient History: Menarche at age 15. First Full-Term at age 22. Left ovary removed at age 31. Right ovary removed at age 31. Hysterectomy at age 31. Postmenopausal. Patient has history of breast feeding. Patient used Estrogen for 2 years. Benign Excisional Biopsy on the left side. Risk Values: Rozina 5 year model risk: 1.8%. NCI Lifetime model risk: 5.3%. Prior Study Comparison: 03/10/2021 Bilateral Screening Mammogram, [facility]. 03/14/2021 Bilateral Diagnostic Mammogram, [facility]. 09/24/2021 Bilateral MG 3D diag mammo w/cad [facility]OTT, [facility]. Tissue Density: The breast tissue is heterogeneously dense. This may lower the sensitivity of mammography. Findings: Analyzed By CAD. There is no suspicious group of microcalcifications or new suspicious mass in either breast. Overall Assessment: Negative, BI-RAD 1 Management: Screening Mammogram of both breasts in [address] [facility] will attempt to contact patient to return for supplemental views and ultrasound if indicated. Patient should continue monthly self-breast exams. A clinical breast exam by your physician is recommended on an annual basis. This exam should not preclude additional follow-up of suspicious palpable abnormalities. Note on Rozina scores and lifetime risk: 1. A Rozina score greater than 3% is considered moderate risk. If this is the case, consider specialist referral to assess eligibility for a risk reducing agent. 2. If overall lifetime risk for the development of breast cancer is 20% or higher, the patient may qualify for future screening with alternating mammogram and breast MRI. Electronically signed and approved by: Rock Hernandez DO
== END | disposition home or self-care (01) ==
LOC: RADMAMWWP 15:57
PROVIDERS: ATTEND Family Medicine
DX: Z12.31 Encounter for screening mammogram for malignant neoplasm of breast (principal); Z78.0 Asymptomatic menopausal state
CPT/HCPCS: 77063; 77067

== ENCOUNTER 2023-03-27 19:34 | Emergency (ER) | payer MEDICARE ==
[2023-03-27 19:49] VITALS: BP 147/73; PULSE 61; RESP 18; TEMP 97.9
--- NOTE | 2023-03-27 20:01 | ED ---
Upper Extremity HPI - General Chief Complaint: Extremity Injury, Upper Stated Complaint: left hand injury Time Seen by Provider: 03/27/23 19:49 Source: patient Mode of arrival: ambulatory Limitations: no limitations - History of Present Illness Initial Comments: 9-year-old female presenting with chief complaint of injury to the left hand. 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 She now has significant bruising and swelling to the area. She still has full range of motion of the finger. No numbness or tingling. She rates the pain a 4-5 on a scale of 1-10. - Related Data Home Medications Medication Instructions Recorded Confirmed PARoxetine [Paxil] 10 mg PO DAILY 02/11/21 07/18/22 Pantoprazole [Protonix] 40 mg PO DAILY 02/11/21 07/18/22 Pramipexole [Mirapex] 0.25 mg PO DAILY 02/11/21 07/18/22 Donepezil [Aricept] 5 mg PO HS 07/18/22 07/18/22 Metoprolol Succinate [Metoprolol 37.5 mg PO DAILY 07/18/22 07/18/22 Succinate ER] Previous Rx's Medication Instructions Recorded Amoxic-Pot Clav 875-125Mg 1 tab PO BID 5 Days #10 tab 07/20/22 [Augmentin 875-125] Fluconazole [Diflucan] 150 mg PO ONCE 1 Days #1 tab 07/20/22 Allergies Allergy/AdvReac Type Severity Reaction Status Date / Time codeine AdvReac Confusion Verified 03/27/23 19:45 Review of Systems ROS Statement: Those systems with pertinent positive or pertinent negative responses have been documented in the HPI. ROS Other: All systems not noted in ROS Statement are negative. Past Medical History Past Medical History: GERD/Reflux Additional Past Medical History / Comment(s): kidney stones, ovarian cysts, hx migraines, IBS, urinary leakage, History of Any Multi-Drug Resistant Organisms: None Reported Past Surgical History: Bladder Surgery, Hysterectomy, Joint Replacement, Orthopedic Surgery Additional Past Surgical History / Comment(s): bladder suspension x 2, rt knee replacement, lt hand surgery Past Anesthesia/Blood Transfusion Reactions: No Reported Reaction Past Psychological History: Anxiety, Depression Smoking Status: Former smoker Past Alcohol Use History: Occasional Past Drug Use History: None Reported - Past Family History Mother Family Medical History: No Reported History General Exam Limitations: no limitations General appearance: alert, in no apparent distress Head exam: Present: atraumatic, normocephalic Eye exam: Present: normal appearance Neck exam: Present: normal inspection Respiratory exam: Absent: respiratory distress Cardiovascular Exam: Present: regular rate Left Hand Wrist exam: Present: full ROM, tenderness (2nd knuckle), swelling (2nd knuckle) Neurological exam: Present: alert, oriented X3 Psychiatric exam: Present: normal affect, normal mood Skin exam: Present: warm, dry, other (bruising L 2nd knuckle) Course Vital Signs 03/27/23 19:43 Temperature 97.9 F Pulse Rate 61 Respiratory 18 Rate Blood Pressure 147/73 O2 Sat by Pulse 96 Oximetry Medical Decision Making - Medical Decision Making Was pt. sent in by a medical professional or institution (, PA, COMMUNITY RELATIONS COORDINATOR, urgent care, hospital, or residential...) When possible be specific @ -No Did you speak to anyone other than the patient for history (EMS, parent, family, police, friend...)? What history was obtained from this source @ -No Did you review nursing and triage notes (agree or disagree)? Why? @ -I reviewed and agree with nursing and triage notes Were old charts reviewed (outside hosp., previous admission, EMS record, old EKG, old radiological studies, urgent care reports/EKG's, residential records)? Report findings @ -No old charts were reviewed Differential Diagnosis (chest pain, altered mental status, abdominal pain women, abdominal pain men, vaginal bleeding, weakness, fever, dyspnea, syncope, headache, dizziness, GI bleed, back pain, seizure, CVA, palpatations, mental hea lth, musculoskeletal)? @ -Differential Musculoskeletal Muscular strain, contusion, ligament sprain, fracture, arthritis, septic arthritis, bursitis, cellulitis, muscle spasm, nerve compression, DVT, arterial occlusion, herpes zoster, electrolyte abnormality, tumor.... This is not meant to be in all inclusive list EKG interpreted by me (3pts min.). @ -As above X-rays interpreted by me (1pt min.). @ -X-ray of the hand shows no fracture or dislocation. Mild osteoarthritic changes CT interpreted by me (1pt min.). @ -None done U/S interpreted by me (1pt. min.). @ -None done What testing was considered but not performed or refused? (CT, X-rays, U/S, labs)? Why? @ -None What meds were considered but not given or refused? Why? @ -None Did you discuss the management of the patient with other professionals (professionals i.e. Dr., PA, COMMUNITY RELATIONS COORDINATOR, lab, RT, psych nurse, social research assistant, records management specialist, teacher, mobile patrol officer, case filler)? Give summary @ -No Was smoking cessation discussed for >3mins.? @ -No Was critical care preformed (if so, how long)? @ -No Were there social determinants of health that impacted care today? How? (Homelessness, low income, unemployed, alcoholism, drug addiction, transportation, low edu. Level, literacy, decrease access to med. care, senior care, rehab)? @ -No Was there de-escalation of care discussed even if they declined (Discuss DNR or withdrawal of care, Hospice)? DNR status @ -No What co-morbidities impacted this encounter? (DM, HTN, Smoking, COPD, CAD, Cancer, CVA, ARF, Chemo, Hep., AIDS, mental health diagnosis, sleep apnea, morbid obesity)? @ -None Was patient admitted / discharged? Hospital course, mention meds given and route, prescriptions, significant lab abnormalities, going to OR and other pertinent info. @ -72-year-old female presenting with chief complaint of hand injury. 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 She has bruising and swelling over the second knuckle. She is neurovascularly i ntact. X-ray negative for fracture or dislocation. She is educated on today's findings and supportive management at home discharged home follow-up with PCP. Report back to ER with any new or worsening symptoms. Discussed return parameters and answered all questions. Patient conveyed verbal understanding and agreed to the plan. I discussed this case in detail with my attending Dr. Laguna Undiagnosed new problem with uncertain prognosis? @ -No Drug Therapy requiring intensive monitoring for toxicity (Heparin, Nitro, Insulin, Cardizem)? @ -No Were any procedures done? @ -No Diagnosis/symptom? @ -Hand injury Acute, or Chronic, or Acute on Chronic? @ -Acute Uncomplicated (without systemic symptoms) or Complicated (systemic symptoms)? @ -Uncomplicated Side effects of treatment? @ -No Exacerbation, Progression, or Severe Exacerbation? @ -No Poses a threat to life or bodily function? How? (Chest pain, [place], [place], pneumonia, PE, COPD, DKA, ARF, appy, cholecystitis, CVA, Diverticulitis, Homicidal, Suicidal, threat to staff... and all critical care pts) @ -No Disposition Clinical Impression: Hand injury Disposition: HOME SELF-CARE Condition: Good Instructions (If sedation given, give patient instructions): Hand Sprain (ED) Additional Instructions: Follow-up with PCP. Report back to ER with any new or worsening symptoms. Take Motrin and Tylenol as needed for pain control. Rest, ice, elevate the hand. Is patient prescribed a controlled substance at d/c from ED?: No Referrals: Haydee Charlton DO [Primary Care Provider] - 1-2 days Time of Disposition: 20:32
[2023-03-27] MEDS: IBUPROFEN 600 MG TAB PO STA (20:15)
--- NOTE | 2023-03-27 20:26 | XR ---
EXAMINATION TYPE: XR hand complete LT DATE OF EXAM: 03/27/2023 8:14 PM CLINICAL INDICATION:Female, 72 years old with history of hit 2nd knuckle with hammer; [facility] COMPARISON: None TECHNIQUE: 3 views of the left hand. FINDINGS: Osseous mineralization appears slightly diminished. No evidence of destructive osseous process, acute fracture lucency, or dislocation. Mild diffuse osteoarthritic changes. Soft tissues are grossly unre markable without radiopaque foreign body seen. IMPRESSION: No acute fracture or dislocation. Mild osteoarthritic changes.
== END 2023-03-27 21:17 | disposition home or self-care (01) ==
LOC: EC 19:34
DX: S69.92XA Unspecified injury of left wrist, hand and finger(s), initial encounter (principal); K21.9 Gastro-esophageal reflux disease without esophagitis; F41.9 Anxiety disorder, unspecified; F32.A Depression, unspecified; Z87.891 Personal history of nicotine dependence; Z79.899 Other long term (current) drug therapy; Z88.5 Allergy status to narcotic agent; W50.0XXA Accidental hit or strike by another person, initial encounter
CPT/HCPCS: 99283

== ENCOUNTER → 2023-09-30 | Outpatient (CLI) | payer MEDICARE ==
--- NOTE | 2023-10-15 14:15 | MM ---
Reason for Exam: Screening (asymptomatic). Last screening mammogram was performed 12 month(s) ago. Patient History: Menarche at age 15. First Full-Term at age 22. Left ovary removed at age 31. Right ovary removed at age 31. Hysterectomy at age 31. Postmenopausal. Patient has history of breast feeding. Patient used Estrogen for 2 years. Benign Excisional Biopsy on the left side. Risk Values: Rozina 5 year model risk: 1.8%. NCI Lifetime model risk: 5.1%. Prior Study Comparison: 03/14/2021 Bilateral Diagnostic Mammogram, [facility]. 09/24/2021 Bilateral MG 3D diag mammo w/cad [facility], [facility]. 09/28/2022 Bilateral MG 3D screening mammo w/cad, [facility]. Tissue Density: The breasts are heterogeneously dense, which may obscure small masses. Findings: Analyzed By CAD. Right breast: There is no suspicious group of microcalcifications or new suspicious mass. Left breast: There is no suspicious group of microcalcifications or new suspicious mass. Overall Assessment: Negative, BI-RAD 1 Management: Screening Mammogram of both breasts in [address] [facility] will attempt to contact patient to return for supplemental views and ultrasound if indicated. Patient should continue monthly self-breast exams. A clinical breast exam by your physician is recommended on an annual basis. This exam should not preclude additional follow-up of suspicious palpable abnormalities. Note on Rozina scores and lifetime risk: 1. A Rozina score greater than 3% is considered moderate risk. If this is the case, consider specialist referral to assess eligibility for a risk reducing agent. 2. If overall lifetime risk for the development of breast cancer is 20% or higher, the patient may qualify for future screening with alternating mammogram and breast MRI. Electronically signed and approved by: Rock Hernandez DO
== END | disposition home or self-care (01) ==
LOC: RADMAMWWP 12:00
PROVIDERS: ATTEND Family Medicine
DX: Z12.31 Encounter for screening mammogram for malignant neoplasm of breast
CPT/HCPCS: 77063; 77067